=== PATIENT | male | born 1945 | race Caucasian/White ===

== ENCOUNTER 2017-10-04 07:35 | Outpatient (CLI) | payer MEDICARE ==
--- NOTE | 2017-10-04 09:08 | CT ---
CT PULMONARY LOW DOSE LUNG SCAN: History: Low dose lung screening. History of COPD, emphysema, smoker for 45 years. FINDINGS: The lungs show some mild emphysematous type changes with areas of airtrapping. No significant bulla a re seen. No bronchiectatic change noted. There is some pleural calcification along the right hemidiap hragm. No other areas of any calcified plaque formation although there is some minimal plaque changes seen within the left lobe. Correlation as to any previous asbestosis exposure. No pulmonary nodules are identified. No significant mediastinal adenopathy is seen. There is fairly dense coronary calcifications noted. IMPRESSION: Lung RADS category 1S - negative. No pulmonary nodules are identified but there are two axillary find ings. One is extensive coronary artery calcifications, the other is pleural based calcifications carla g the right hemidiaphragm raising the possibility of previous asbestosis exposure. POS: [facility]
== END 2017-10-04 07:36 | disposition home or self-care (01) ==
LOC: CT 07:35
PROVIDERS: ATTEND Family Medicine
DX: Z87.891 Personal history of nicotine dependence (principal); R91.8 Other nonspecific abnormal finding of lung field
CPT/HCPCS: G0297

== ENCOUNTER 2017-11-01 06:43 | Outpatient (CLI) | payer MEDICARE ==
[2017-10-27 11:41] VITALS: BMI 40.3
[2017-11-01 07:16] VITALS: TEMP 98
--- NOTE | 2017-11-01 09:56 | RAD ---
CERVICAL AND LUMBAR MYELOGRAM: HISTORY: Lumbar and cervical radiculopathy. COMPARISON: 09/19/2014 EXPOSURE: 1.2 minutes 2671.1 mGy per m2 FINDINGS: Initial rn surgical views of the lumbar and cervical spine were performed. There is extensive degenerative change of the cervical spine with extensive osteophyte formation. Facet hypertrophy is noted. Calc ification in the left neck soft tissues, likely representing atherosclerotic plaque in the carotid ar minerva. Two views of the lumbar spine demonstrate five lumbar type vertebral bodies. Moderate loss of disk s pace height at L4-L5 and at L5-S1. Osteophyte formation is noted. No fracture. Extensive atheroscl erosis of the aorta is identified. Technically successful lumbar puncture for intrathecal contrast administration. A total of 10 mL of Isovue 300M contrast was administered intrathecally. The patient tolerated the procedure well. No i mmediate or post procedure complications. TECHNIQUE: Consent obtained to perform a lumbar puncture for intrathecal contrast administration. The patient's back was evaluated. The L3-L4 level was deemed appropriate. The skin was prepped and draped in a s terile fashion, and 1% Lidocaine buffered with sodium bicarbonate was used for local anesthesia. Und er fluoroscopic guidance, a 22 gauge spinal needle was advanced into the CSF space. The inner stylet was removed. There was prompt flow of clear CSF, at the hub of the needle. A total of 10 mL of Iso isrrael 300M contrast was administered intrathecally. The patient tolerated the procedure well. No imme diate or post procedure complications. IMPRESSION: Successful lumbar puncture for cervical and lumbar myelogram. POS: [facility]
--- NOTE | 2017-11-01 10:22 | CT ---
POST MYLEOGRAM CERVICAL SPINE CT: History: Cervical radiculopathy. Comparison: 09-19-14 Technique: Post myelogram cervical spine CT is performed in the axial plane. Sagittal and coronal ref ormatted images are submitted for interpretation. FINDINGS: Cervical spine vertebral height is maintained. There is no fracture. There is no spondylolysis. There are extensive degenerative changes throughout the intraarticular facets. 4.2 mm of anterolisthesis o f C4 upon C5, 4.7 mm anterolisthesis of C5 upon C6, 2.8 mm anterolisthesis of C6 upon C7. Spondylolis thesis is similar to previous examination. No prevertebral soft tissue swelling. No epidural hematoma. Extensive atherosclerosis of the left and right carotid arteries. Upper mediastinum and lung apices are unremarkable. C2-3: No significant osteophyte complex. Right neural foramen is patent. Severe left foraminal narrow ing due to degenerative change of the uncal vertebral joint and facet hypertrophy. C3-4: Broad based disc osteophyte complex without high grade central canal stenosis. Degenerative tristian nge of bilateral uncal vertebral joints and bilateral facet hypertrophy (right greater than left) is noted. Moderate bilateral foraminal narrowing. C4-5: There is a broad based disc osteophyte complex. No high grade central canal stenosis. There ranulfo ears to be minimal flattening of the thecal sac secondary to central osteophyte complex. Right neural foramen is patent. Severe left foraminal narrowing predominately due to facet hypertrophy. C5-6: Broad based osteophyte ridge effaces the ventral subarachnoid space. Mild central canal stenosi s. Degenerative change and bilateral vertebral joints result in moderate bilateral foraminal narrowin g. C6-7: Broad based osteophyte results in moderate central canal stenosis. Degenerative change in bilat eral uncal vertebral joints is also severe. Bilateral foraminal narrowing. C7-T1: No high grade central canal stenosis. Mild bilateral foraminal narrowing. Asymmetric prominence of the right pyriform sinus, due to right vocal cord paralysis. Findings are un changed. IMPRESSION: Degenerative change of the cervical spine as detailed above. POS: [facility]
--- NOTE | 2017-11-01 10:30 | CT ---
POST MYELOGRAM LUMBAR SPINE CT: HISTORY: Lumbar radiculopathy. COMPARISON: 09/19/2014 TECHNIQUE: Post myelogram lumbar spine CT is performed in the axial plane. Reformatted images are submitted for interpretation. FINDINGS: The visualized solid organs are unremarkable. Symmetric attenuation of the psoas muscles. Atheroscl erosis of a nonaneurysmal aorta. No retroperitoneal mass, lymphadenopathy, or hematoma. Lumbar spine vertebral body height is maintained. No fracture. Straightening of normal lumbar lordo sis. No spondylolisthesis or spondylolysis. The conus medullaris terminates at the superior aspect of L1. T11-T12: No high grade central canal stenosis or high grade foraminal narrowing. T12-L1: No high grade central canal stenosis or high grade foraminal narrowing. L1-L2: Generalized disk bulge results in minimal stenosis of the thecal sac. The neural foramina ar e patent bilaterally. L2-L3: Vacuum disk phenomenon. Broad-based disk bulge, ligamentum flavum thickening, and facet hype rtrophy result in mild central canal stenosis. Mild right and left foraminal narrowing. L3-L4: No significant central canal stenosis. Mild right and minimal left foraminal narrowing. L4-L5: Vacuum disk phenomenon. Broad-based disk bulge, ligamentum flavum thickening, and facet hype rtrophy result in mild central canal stenosis. Mild to moderate right and moderate left foraminal na rrowing. L5-S1: Generalized disk bulge without significant central canal stenosis. Moderate right and modera te to severe left foraminal narrowing. IMPRESSION: Degenerative changes of the lumbar spine as detailed above. POS: [facility]
== END 2017-11-01 06:44 | disposition home or self-care (01) ==
LOC: RAD 06:43
PROVIDERS: ATTEND Specialist
DX: M50.120 Mid-cervical disc disorder, unspecified level (principal); M51.17 Intervertebral disc disorders with radiculopathy, lumbosacral region; M47.26 Other spondylosis with radiculopathy, lumbar region; M47.22 Other spondylosis with radiculopathy, cervical region; Z98.890 Other specified postprocedural states
CPT/HCPCS: 62305; 72126; 72132

== ENCOUNTER 2017-12-04 12:53 | Outpatient (CLI) | payer MEDICARE ==
[2017-12-04 14:41] LABS: Hemoglobin 13.8 g/dL (14.0-18.0); Mean Corpuscular Hemoglobin 33.1 pg (27.0-31.0); Mean Corpuscular Volume 94.6 fl (80.0-94.0); Mean Platelet Volume 7.1 fL (7.4-10.4); Platelet Count 207 thou/uL (130-400); RBC Distribution Width 12.8 % (11.5-14.5); Red Blood Cell (RBC) Count 4.16 mill/uL (4.70-6.10)
[2017-12-04 14:46] LABS: PTT 27.6 SEC (22.9-36.1)
[2017-12-04 14:47] LABS: Prothrombin Time 13.3 SEC (12.0-14.7)
[2017-12-04 15:09] LABS: ALT (SGPT) 28 U/L (8-55); AST (SGOT) 20 U/L (5-34); Albumin 4.2 g/dL (3.4-4.8); Alkaline Phosphatase 53 U/L (40-150); Anion Gap 12 mmol/L (10-20); BUN (Urea Nitrogen) 18 mg/dL (8.4-25.7); Bilirubin, Total 0.8 mg/dL (0.2-1.2); Calc. Creatinine Clearance 0 mL/min (70-130); Calcium 9.4 mg/dL (7.8-10.44); Carbon Dioxide 25 mmol/L (23-31); Cardiac Risk 4.4 (Less than 4.5); Chloride 107 mmol/L (98-107); Cholesterol 141 mg/dl (< 200 Desired); Estimated GFR-MDRD 65; Globulin 2.8 g/dL (2.4-3.5); Glucose 104 mg/dL (83-110); HDL Cholesterol 32 mg/dL (>60 Neg Risk); LDL Cholesterol, Calculated 68 mg/dL; Sodium 140 mmol/L (136-145); Triglycerides 207 mg/dL (Less than 150)
--- NOTE | 2018-02-05 21:07 | EKG ---
Test Reason : Blood Pressure : / mmHG Vent. Rate : 063 BPM Atrial Rate : 063 BPM P-R Int : 176 ms QRS Dur : 104 ms QT Int : 420 ms P-R-T Axes : 045 024 031 degrees QTc Int : 429 ms Normal sinus rhythm Normal ECG When compared with ECG of 28-JAN-2014 08:56, No significant change was found Confirmed by IMELDA SMITH M.D. ([id number]) on 02/05/2018 9:07:21 PM Referred By: LUIS Confirmed By:IMELDA SMITH M.D.
== END 2017-12-04 12:54 | disposition home or self-care (01) ==
LOC: LABBT 12:53
PROVIDERS: ATTEND Internal Medicine Cardiovascular Disease
DX: Z01.818 Encounter for other preprocedural examination (principal); I25.119 Atherosclerotic heart disease of native coronary artery with unspecified angina pectoris
CPT/HCPCS: 80053; 80061; 85027; 85610; 85730; 93005; 93010

== ENCOUNTER 2017-12-08 06:49 | Day surgery (SDC) | payer MEDICARE ==
[2017-12-04 13:30] VITALS: BMI 38.4
[2017-12-08] MEDS ORDERED: Nitroglycerin 100MG/250ML BOT 250 ML ONE (09:14)
[2017-12-08] MEDS ORDERED: Verapamil 5 MG/2 ML VIAL ONE (09:14)
[2017-12-08] MEDS ORDERED: Heparin 10,000 UNITS/1 ML VIAL ONE (09:14)
[2017-12-08] MEDS ORDERED: Midazolam HCl 2 mg/2 ml Vial ONE (09:19)
[2017-12-08] MEDS ORDERED: Fentanyl 100 MCG/2 ML VIAL ONE (09:19)
[2017-12-08] MEDS ORDERED: Iopamidol 370 76% 100 ML VIAL ONE (11:19)
[2017-12-08] MEDS ORDERED: Iopamidol 370 76% 50 ML VIAL FS ONE (11:19)
--- NOTE | 2017-12-08 14:56 | RAD ---
PA AND LATERAL OF THE CHEST: INDICATION: Preoperative procedure for CABG. COMPARISON: Prior exam dated 07/05/12. FINDINGS: No focal consolidation is evident. There is stable mild cardiomegaly. Multilevel spondylosis of tho racic spine with DISH changes is similar. IMPRESSION: No acute cardiopulmonary abnormality. POS: [facility]
--- NOTE | 2017-12-08 15:08 | CON ---
DATE OF CONSULTATION: 12/08/2017 REQUESTING PHYSICIAN: Dr. Eldridge. PRIMARY CARE PHYSICIAN: Dr. Jeremias Barrientos. CHIEF COMPLAINT: Chest pain and dyspnea on minimal exertion. HISTORY OF PRESENT ILLNESS: The patient is a 72-year-old man who until recently was a lifelong smoker. The patient is hard of hearing and even with his hardware for his cochlear implant is sometimes a challenging historian because of his hearing. When asked about how long his symptoms have been going on, he and his talked about getting short of breath when he exerts himself for at least 20 years. A daughter who lives out of town had interjected however , that when he recently came for a visit that she noticed that he got much more short of breath with much less activity, then she remembered him the last time she seen him and piecing it all together it sounds like he has had some baseline problems with dyspnea on exertion, but over the last few months, it has been getting worse and he is now at a point where it sounds like he can really only walk perhaps across the room before he begins having chest pain and shortness of breath. PAST MEDICAL HISTORY: Significant for hypertension. He has a legacy diagnosis of COPD. He has had multiple arthritic issues with back problems and he has had 2 procedures on his right knee including a knee replacement. He has had a carpal tunnel release and he has hypothyroidism. MEDICATIONS: Lisinopril/hydrochlorothiazide 20/25 one tablet a day, Zocor 10 mg at bedtime, meloxicam 15 mg a day, baby aspirin a day, fluticasone nasal spray daily, Lasix 20 mg a day as needed for peripheral edema, vitamin D3, multivitamins, iron sulfate. ALLERGIES: He reports allergies to SULFA, which causes swelling, and CODEINE. When questioned about the CODEINE, he said that as a teenager, he received codeine and began jumping up and down, and since then been described as having seizures with CODEINE what he described to me sounded more can do dysphoric reaction. He says that he since had hydrocodone without difficulty. SOCIAL HISTORY: The patient has about [id number] history of smoking, but quit in 2016. FAMILY HISTORY: Significant for his father dying of an [place]. Brother dying of cerebral aneurysm. REVIEW OF SYSTEMS: Positive for an occasional cough. Positive for arthritic symptoms diffusely. Positive for hearing difficulty. Positive for peripheral edema. Negative for orthopnea or PND. Negative for any transient eyes, speech , facial or extremity symptoms consistent with TIAs, although he told me that he had a "stroke" after his knee replacement a few years ago. When asked about how that was manifest, his said the right side of his face drooped. PHYSICAL EXAMINATION: GENERAL: He is a large man, in no distress. VITAL SIGNS: He is 5 feet 9. Weighs 261-1/2 pounds. Heart rate is 60, blood pressure 149/74, respirations 20, temperature is 97.5, room air sats are 96%. HEENT: He has no xanthelasma. NECK: No JVD, no carotid bruits. LUNGS: His chest is clear to auscultation. CARDIOVASCULAR: He has a regular rate and rhythm without murmur or gallop. ABDOMEN: Large, soft, and nontender. EXTREMITIES: He has an easily palpable left radial pulse. He has a pressure device on his right radial following his catheterization. He has strong posterior tibial pulses, but I was not able to palpate dorsalis pedis pulses. He has spiders at both ankles. He has a trace to 1+ edema at the left ankle, 1- 2+ at the right ankle. NEUROLOGIC: Other than being dramatically hard of hearing, his neurologic exam is grossly normal. LABORATORY DATA: Show white count of 7.0, hemoglobin 13.8, hematocrit 39.4, platelets 207,000. PT is 13.3, INR 1.0, PTT 27.6. Electrolytes are normal. Glucose 104, BUN 18, creatinine 1.10, bilirubin 0.8, alkaline phosphatase 53, AST 20, ALT 28, calcium 94, protein 7.0, albumin 4.2, triglycerides 207, cholesterol 141 with LDL 68 and HDL 32. TSH done about 3 months ago was 0.6052. His cardiac catheterization shows a right dominant system with diffuse irregularity throughout the right coronary proper and minimal disease in the PDA. None of the areas of his right coronary worsened about 30%-40% stenotic. He has branch off of his posterolateral branch that has an ostial lesion, but it is a very small caliber vessel. He has about an 80%-90% ostial lesion in his LAD with a separate lesion at the first septal bottom sprayer. There is probably about an 80%-90% lesion in a relatively small OM1 and some very mild disease in the circumflex system beyond that it is mostly a very small vessel beyond that. LVEF is around 70 or even 80%. LV pressures were 122/3 with an EDP of 16. He had a pulmonary function testing done fairly recently that was interpreted as being normal, although the actual spirometry numbers are not available to me. Likewise, Dr. Eldridge's office note describes his echo is having normal LV function. His stress test showing inferior ischemia and a carotid study showing mild plaque. ASSESSMENT AND RECOMMENDATION: Ostial LAD disease as well as significant disease in a relatively small OM. The patient reports frequent dizziness that sometime is associated with Valsalva maneuvers such as coughing, sneezing or straining at stool. It is not clear that there is any exertional component to that, but clearly has exertional chest pain and shortness of breath that I think can be readily attributable to his coronary disease. We will plan on coronary artery bypass grafting next week. MELIDA
== END 2017-12-08 18:40 | disposition home or self-care (01) ==
LOC: CCL 06:49
PROVIDERS: ATTEND Internal Medicine Cardiovascular Disease
DX: I25.119 Atherosclerotic heart disease of native coronary artery with unspecified angina pectoris (principal); J44.9 Chronic obstructive pulmonary disease, unspecified; E78.00 Pure hypercholesterolemia, unspecified; I10 Essential (primary) hypertension; M19.90 Unspecified osteoarthritis, unspecified site; E07.9 Disorder of thyroid, unspecified; Z88.2 Allergy status to sulfonamides; Z88.5 Allergy status to narcotic agent; Z79.82 Long term (current) use of aspirin; Z79.899 Other long term (current) drug therapy; Z98.890 Other specified postprocedural states; Z86.73 Personal history of transient ischemic attack (TIA), and cerebral infarction without residual deficits
CPT/HCPCS: 71046; 93458; C1769; 99152; J1644; J2250; J3010

== ENCOUNTER 2017-12-12 11:37 | Outpatient (CLI) | payer MEDICARE ==
[2017-12-12 13:19] LABS: Hemoglobin 14.3 g/dL (14.0-18.0); Mean Corpuscular Hemoglobin 32.5 pg (27.0-31.0); Mean Corpuscular Volume 95.5 fl (80.0-94.0); Mean Platelet Volume 7.3 fL (7.4-10.4); Platelet Count 237 thou/uL (130-400); RBC Distribution Width 12.8 % (11.5-14.5); Red Blood Cell (RBC) Count 4.39 mill/uL (4.70-6.10); White Blood Cell (WBC) Count 7.3 thou/uL (4.8-10.8)
[2017-12-12 13:47] LABS: Anion Gap 14 mmol/L (10-20); BUN (Urea Nitrogen) 22 mg/dL (8.4-25.7); Calc. Creatinine Clearance 0 mL/min (70-130); Calcium 9.4 mg/dL (7.8-10.44); Carbon Dioxide 24 mmol/L (23-31); Chloride 104 mmol/L (98-107); Estimated GFR-MDRD 77; Glucose 107 mg/dL (83-110); Sodium 138 mmol/L (136-145)
== END 2017-12-12 11:38 | disposition home or self-care (01) ==
LOC: LABBT 11:37
PROVIDERS: ATTEND Thoracic Surgery (Cardiothoracic Vascular Surgery)
DX: Z01.812 Encounter for preprocedural laboratory examination (principal); I25.10 Atherosclerotic heart disease of native coronary artery without angina pectoris
CPT/HCPCS: 80048; 85027; 86850; 86900; 86901

== ENCOUNTER 2017-12-12 12:00 | Inpatient (IN) | payer MEDICARE, OTHER ==
[2017-12-13] MEDS ORDERED: CEFAZOLIN/Water 2 GM/20 ML SYRINGE ONE (07:28)
[2017-12-13] MEDS ORDERED: Heparin 10,000 UNITS/1 ML VIAL 30,000 UNITS in Sodium Chloride 0.9% 1,000 ML FS SCH (09:15)
[2017-12-13] MEDS ORDERED: Fentanyl 100 MCG/2 ML VIAL ONE ×2 (10:55)
[2017-12-13] MEDS ORDERED: Midazolam HCl 5 mg/5 ml Vial ONE (10:56)
[2017-12-13] MEDS ORDERED: Mag-Al 1200 mg/1200 mg/30 ML UDCUP PO PRN (11:58)
[2017-12-13] MEDS ORDERED: Post-Op Insulin Drip Protocol IVPB ONE (11:58)
[2017-12-13] MEDS ORDERED: Promethazine HCl 25 MG/ML VIAL IM PRN (11:58)
[2017-12-13] MEDS ORDERED: hydrALAZINE 20 MG/ML VIAL SLOW IVP PRN (11:58)
[2017-12-13] MEDS ORDERED: Nitroglycerin 50 MG/250 ML BOT 250 ML IVPB PRN (11:58)
[2017-12-13] MEDS ORDERED: Hetastarch 6% 500 ML 500 ML IVPB PRN (11:58)
[2017-12-13] MEDS ORDERED: Fentanyl 100 MCG/2 ML VIAL SLOW IVP PRN (11:58)
[2017-12-13] MEDS ORDERED: Potassium Chloride 20 MEQ/100 ML PREMIX BAG IVPB PRN (11:58)
[2017-12-13] MEDS ORDERED: Guaifenesin DM 100-10/5 ML UDCUP PO PRN (11:58)
[2017-12-13] MEDS ORDERED: Bisacodyl 10 MG SUPP PR PRN (11:58)
[2017-12-13] MEDS ORDERED: Bisacodyl 5 MG TAB PO PRN (11:58)
[2017-12-13] MEDS ORDERED: DOPamine 400 MG/D5W 250 ML 250 ML IVPB PRN (11:58)
[2017-12-13] MEDS ORDERED: Dextrose 50% Abboject 50 ML SYRINGE SLOW IVP PRN (12:33)
[2017-12-13] MEDS ORDERED: Dextrose 5% in Water 1,000 ML IV PRN (12:33)
[2017-12-13] MEDS: CEFAZOLIN 1 GM, Syringe 2.5 ML in Sterile Water 7.5 ML SLOW IVP SCH ×2 (12:33→15:27)
[2017-12-13] MEDS ORDERED: Albumin 5% 0 ML ONE (13:20)
[2017-12-13 13:21] VITALS: BMI 38.5
[2017-12-13] MEDS ORDERED: Aminocaproic Acid 5 GM/20 ML VIAL ONE (15:17)
[2017-12-13] MEDS ORDERED: Heparin 30,000 units/30 ml VIAL ONE (15:17)
[2017-12-13] MEDS ORDERED: Sodium Bicarb 50 MEQ/50 ML VIAL ONE (15:17)
[2017-12-13] MEDS ORDERED: Heparin 5,000 UNITS/ML VIAL ONE (15:17)
[2017-12-13] MEDS ORDERED: Lidocaine 2% PF 100 mg/5 ml Syringe ONE (15:17)
[2017-12-13] MEDS ORDERED: Papaverine 60 MG/2 ML VIAL ONE (15:17)
[2017-12-13] MEDS ORDERED: Magnesium 5 GM/10 ML VIAL ONE (15:17)
[2017-12-13] MEDS ORDERED: Potassium Chloride 60 MEQ/30 ML VIAL ONE (15:17)
[2017-12-13] MEDS ORDERED: Protamine Sulfate 250 MG/25 ML VIAL ONE (15:17)
[2017-12-13] MEDS ORDERED: Dexamethasone 20 MG/5 ML VIAL ONE (15:18)
[2017-12-13] MEDS ORDERED: Succinylcholine Chloride 20 MG/ML 10 ml SYRINGE FS ONE (15:18)
[2017-12-13] MEDS ORDERED: Glycopyrrolate 0.2 MG/ML 5 ML SYRINGE ONE (15:18)
[2017-12-13] MEDS ORDERED: PROPOFOL 200 MG/20 ML VIAL ONE (15:18)
[2017-12-13] MEDS ORDERED: PHENYLEPHRINE-NS 100 MCG/ML 10 ML SYRINGE ONE (15:18)
[2017-12-13] MEDS ORDERED: Ondansetron PF 4 MG/2 ML Vial ONE (15:18)
[2017-12-13] MEDS ORDERED: Rocuronium Bromide 50 MG/5 ML VIAL ONE (15:24)
[2017-12-13] MEDS: Sodium Chloride 0.9% 1,000 ML IV SCH ×2 (15:27→21:27)
[2017-12-13 16:33] LABS: #Eosinphils 0.1 thou/uL (0.0-0.7); #Lymphocytes 1.3 thou/uL (1.20-3.40); #Monocytes 0.6 thou/uL (0.11-0.59); #Neutrophils 12.2 thou/uL (1.40-6.50); %Basophils 0.1 % (0.0-1.0); %Eosinophils 0.6 % (0.0-10.0); %Lymphocytes 9.2 % (21.0-51.0); %Monocytes 4.5 % (0.0-10.0); %Neutrophils 85.6 % (42.0-75.0); Hemoglobin 11.6 g/dL (14.0-18.0); Mean Corpuscular HGB CONC 34.8 g/dL (32.0-36.0); Mean Corpuscular Hemoglobin 33.1 pg (27.0-31.0); Mean Platelet Volume 6.8 fL (7.4-10.4); Platelet Count 184 thou/uL (130-400); RBC Distribution Width 12.4 % (11.5-14.5); Red Blood Cell (RBC) Count 3.51 mill/uL (4.70-6.10); White Blood Cell (WBC) Count 14.3 thou/uL (4.8-10.8)
[2017-12-13 16:40] LABS: INR-International Normal Ratio 1.4; PTT 29.8 SEC (22.9-36.1); Prothrombin Time 17.3 SEC (12.0-14.7)
[2017-12-13] MEDS ORDERED: Prevnar 13-Val Conj/PF 0.5 ML SYRINGE IM ONE (16:45)
--- NOTE | 2017-12-13 16:53 | RAD ---
CHEST ONE VIEW 12/13/17 HISTORY: Post open heart surgery. COMPARISON: 12/08/17. FINDINGS: Patient is intubated. Endotracheal tube tip at the level of the clavicles in good position. Central v enous catheter tip is in the right atrium. Heart size is enlarged. Thoracostomy drain is in place. No large pneumothorax. IMPRESSION: Expected postoperative findings without complication. POS: [facility]
[2017-12-13 16:54] LABS: Actual Bicarbonate (HCO3a) 21.3 mEq/L (22-26); Base Excess (BEa) -4.1 mEq/L (0 (+/-) 2.5); CO2 Tension 40.3 mmHg (35.0-45.0); Calcium, Ionized 1.1 mmol/L (1.12-1.30); Carboxyhemoglobin (COHb) 1.7 gm% (0.0-3.0); Hematocrit-ABG 32.8 % (42.0-52.0); Hemoglobin (Hb) 11.9 g/dL (14.0-18.0); O2 Tension (PaO2) 91.2 mmHg (80.0-100.0); Puncture Site ALINE; pH, Arterial 7.34 (7.35-7.45)
[2017-12-13 16:55] LABS: ALV-art Gradient 214.925 (0-20)
[2017-12-13] MEDS ORDERED: FLU VACC TS2017-18 (>65YR) 0.5 ML SYRINGE IM ONE (17:00)
[2017-12-13 17:01] LABS: Anion Gap 11 mmol/L (10-20); BUN (Urea Nitrogen) 14 mg/dL (8.4-25.7); Calc. Creatinine Clearance 132 mL/min (70-130); Calcium 7.5 mg/dL (7.8-10.44); Carbon Dioxide 22 mmol/L (23-31); Chloride 110 mmol/L (98-107); Estimated GFR-MDRD Greater than 90; Glucose 149 mg/dL (83-110); Potassium 4.3 mmol/L (3.5-5.1); Sodium 139 mmol/L (136-145)
[2017-12-13] MEDS: Insulin Regular 300 UNITS/3 ML VIAL SC PRN (17:16)
--- NOTE | 2017-12-13 17:52 | OP ---
DATE OF PROCEDURE: 12/13/2017 PROCEDURE PERFORMED: Coronary artery bypass grafting x2 with left internal mammary artery to the lef t anterior descending artery and reverse greater saphenous vein graft from the aorta to the OM1. PREOPERATIVE DIAGNOSIS: Coronary artery disease. POSTOPERATIVE DIAGNOSIS: Coronary artery disease. SURGEON: Rufino Armstrong M.D. IT ARCHITECT: Sixto. ANESTHESIA: General endotracheal anesthesia. INDICATIONS: The patient is a 72-year-old man with progressive dyspnea on exertion that is now at cl ass 3 level. Cardiac evaluation demonstrated high grade ostial LAD lesion with modest disease in the moderate size obtuse marginal. There is diffuse luminal irregularity without hemodynamic compromise in the right coronary system by echocardiography, it is reported to have normal LV systolic function . He is now taken to the operating room for coronary revascularization. FINDINGS: The pump time 62 minutes, crossclamp time 29 minutes. Good quality MALCOM and saphenous vein . The LAD was grafted distally. There is scattered plaque more proximally, it was about 1.5 mm vess el were grafted. The OM1 was a fairly good quality vessel with palpable plaque, far proximally it wa s about 1.5 mm vessel. Pericardium was closed. NARRATIVE REPORT: After informed consent was obtained, the patient was taken to the operating room a nd placed in supine position on the operating table. After the induction of general anesthesia, the patient's torso, groins and lower extremities were prepped and draped in sterile fashion. The assist ant harvested a length of saphenous vein from the patient's proximal left thigh using a skin bridge t echnique. [place] sites were closed in layers of Vicryl and skin staple after the vein was prepared for grafting. Median sternotomy was performed. The left MALCOM was mobilized as a pedicle from xiphoid to the level of the subclavian vein through an extrapleural exposure. A small violation of the pleu ra near the apex was oversewn with fine Prolene. The patient was heparinized. The mammary was ligat ed and divided distally. There is good flow through the mammary which was then instilled intralumina lly with papaverine solution. The mammary bed was inspected for hemostasis. The MALCOM retractor was p laced with López retractor. The pericardium was opened and marsupialized. The aorta was palpated . There was hard plaque palpable at the base of the arch just beyond the pericardial reflection. Th e intrapericardial aorta was soft. Double concentric pursestring of 2-0 Ethibonds placed in the asce nding aorta within the pericardial reflection. A single pursestring was placed in the right atrial a ppendage. Aortic and venous cannulae were inserted and secured with pursestrings. Cardiopulmonary b ypass was instituted and the patient's temperature allowed to drift. The heart was examined. The ve ssel to be bypassed was identified. The mediastinal pleura on the left side were mobilized. Plane b etween the aorta and the pulmonary artery was developed. There was no further plaque appreciable in it. An aortic cross clamp was applied and cardioplegia was administered through aortic root needle w hile cardioplegia was infusing. A longitudinal split was made in the pericardium anterior to the lef t phrenic nerve. The mammary could be passed. When risks have been achieved, attention was turned t o the circumflex system. The OM1 was identified and then opened with a [place] blade and Gwyn sci ssors. Reverse greater saphenous vein was anastomosed their end-to-side with running Prolene suture. Anastomosis was tested by flushing pump blood down the graft. The LAD was then opened distally. T he MALCOM was anastomosed to it with running 7-0 Prolene, and the mammary pedicle tacked to the epicardi um. The aortic crossclamp was placed with partial occluding clamp and an aortotomy was made in the a scending aorta with a scalpel and punch incorporating the root needle site. The obtuse marginal jessie t trimmed to length and spatulated and anastomosed to that aortotomy end-to-side with running Prolene and the proximal anastomosis marked with small Hemoclips. Partial occlusion clamp was removed. The vein graft was deaired and bulldog removed from it. The anastomosis was inspected for hemostasis. The posterior pericardial drain was brought out through a separate incision and secured with suture. Bulging of the left pleura was seen suggesting a residual pneumothorax. It was elected to evacuate that using an ET sucker placed through pursestring Prolene suture in the anterior pleura. Upon re-in flating the lungs; however bubbling could be seen through the pulled bloody fluid towards the apex. Even though test splitting of that area appeared to be watertight, it was opted to place a 19-Yi soft drain into the pleural space to evacuate any fluid that accumulated during the case and any resi dual air. Right atrial and right ventricular temporary epicardial pacing wires were placed. The pat ient was then easily from cardiopulmonary bypass. The aortic and venous cannulas were lesley merle, and their pursestring secured. Protamine was administered. When hemostasis was adequate, an an terior mediastinal drain was placed. The pericardium was closed over a running Vicryl. The sternum was reapproximated with #7 stainless steel wires. Fascia was closed over the wires with heavy Vicryl . Subcutaneous tissue was irrigated and reapproximated and the skin was closed with Vicryl subcuticu lar stitch. The wounds were dressed. The patient was taken to the Intensive Care Unit in stable con dition.
[2017-12-13 18:11] LABS: Hemoglobin 12.1 g/dL (14.0-18.0)
[2017-12-13 18:34] LABS: Potassium 4.1 mmol/L (3.5-5.1)
[2017-12-13 19:36] LABS: Actual Bicarbonate (HCO3a) 19.3 mEq/L (22-26); Base Excess (BEa) -5.3 mEq/L (0 (+/-) 2.5); CO2 Tension 34.4 mmHg (35.0-45.0); Hemoglobin (Hb) 11.1 g/dL (14.0-18.0); O2 Tension (PaO2) 85.8 mmHg (80.0-100.0); pH, Arterial 7.37 (7.35-7.45)
[2017-12-13 19:37] LABS: Carboxyhemoglobin (COHb) 1.6 gm% (0.0-3.0); Potassium - ABG Lab 3.9 mmol/L (3.70-5.30)
[2017-12-13 19:38] LABS: Analyzer IN Cardio ER; Puncture Site A LINE
[2017-12-13] MEDS: Famotidine/PF 20 mg/2ml Vial SLOW IVP SCH (20:58)
[2017-12-13] MEDS: Atorvastatin Calcium 20 MG TAB PO SCH (20:58)
[2017-12-13] MEDS: Fentanyl 100 MCG/2 ML VIAL SLOW IVP PRN (22:10)
[2017-12-14] MEDS ORDERED: B & O PR PRN (00:09)
[2017-12-14] MEDS: Fentanyl 100 MCG/2 ML VIAL SLOW IVP PRN ×2 (00:10→04:26)
[2017-12-14] MEDS: Ondansetron PF 4 MG/2 ML Vial IVP PRN ×4 (00:53→20:29)
[2017-12-14] MEDS: HYDROcodone/Acetaminophen 5/325 mg Tablet PO PRN ×4 (01:49→20:27)
[2017-12-14 04:40] LABS: #Lymphocytes 0.5 thou/uL (1.20-3.40); #Monocytes 0.6 thou/uL (0.11-0.59); %Eosinophils 0.2 % (0.0-10.0); %Lymphocytes 4.8 % (21.0-51.0); %Neutrophils 88.9 % (42.0-75.0); Hemoglobin 10.2 g/dL (14.0-18.0); Mean Corpuscular HGB CONC 34.9 g/dL (32.0-36.0); Mean Corpuscular Hemoglobin 33.5 pg (27.0-31.0); Mean Corpuscular Volume 95.9 fl (80.0-94.0); Platelet Count 175 thou/uL (130-400); RBC Distribution Width 12.6 % (11.5-14.5); Red Blood Cell (RBC) Count 3.06 mill/uL (4.70-6.10); White Blood Cell (WBC) Count 10.2 thou/uL (4.8-10.8)
[2017-12-14 04:49] LABS: Anion Gap 9 mmol/L (10-20); BUN (Urea Nitrogen) 21 mg/dL (8.4-25.7); Calc. Creatinine Clearance 110 mL/min (70-130); Calcium 7.3 mg/dL (7.8-10.44); Carbon Dioxide 22 mmol/L (23-31); Chloride 112 mmol/L (98-107); Estimated GFR-MDRD 75; Glucose 136 mg/dL (83-110); Potassium 4.1 mmol/L (3.5-5.1); Sodium 139 mmol/L (136-145)
[2017-12-14] MEDS ORDERED: Nitroglycerin 0.4 MG TAB 1 EACH SL PRN (06:56)
[2017-12-14] MEDS ORDERED: diphenhydrAMINE 25 MG CAP PO PRN (06:56)
[2017-12-14] MEDS ORDERED: Guaifenesin DM 100-10/5 ML UDCUP PO PRN (06:56)
[2017-12-14] MEDS ORDERED: Mineral Oil ENEMA PR PRN (06:56)
[2017-12-14] MEDS ORDERED: Bisacodyl 10 MG SUPP PR PRN (06:56)
[2017-12-14] MEDS ORDERED: Artificial Tears 18 DROP/0.9 ML EA EYE PRN (06:56)
[2017-12-14] MEDS ORDERED: Mag-Al 1200 mg/1200 mg/30 ML UDCUP PO PRN (06:56)
[2017-12-14] MEDS ORDERED: Bisacodyl 5 MG TAB PO PRN (06:56)
[2017-12-14] MEDS ORDERED: Zolpidem Tartrate 5 MG TAB PO PRN (06:56)
[2017-12-14] MEDS ORDERED: HYDROcodone/Acetaminophen 5/325 mg Tablet PO PRN (06:57)
[2017-12-14] MEDS ORDERED: Dextrose 5% in Water 1,000 ML IV PRN (07:24)
[2017-12-14] MEDS ORDERED: Insulin Regular 300 UNITS/3 ML VIAL SC PRN (07:24)
[2017-12-14] MEDS ORDERED: Dextrose 50% Abboject 50 ML SYRINGE SLOW IVP PRN (07:24)
[2017-12-14] MEDS: Metoprolol Tartrate 25 MG TAB PO SCH ×2 (08:26→20:27)
[2017-12-14] MEDS: Famotidine/PF 20 mg/2ml Vial SLOW IVP SCH ×2 (08:26→20:27)
[2017-12-14] MEDS: Aspirin 325 mg Enteric Coated Tablet PO SCH (08:30)
--- NOTE | 2017-12-14 08:57 | RAD ---
PORTABLE CHEST: HISTORY: Respiratory distress. COMPARISON: Prior day's study. FINDINGS: Heart size is enlarged with postop sternotomy change. Right subclavian line is unchanged in position . Left-sided chest tube remains stable. Parenchymal lung changes are also stable. IMPRESSION: Stable chest. POS: [facility]
[2017-12-14] MEDS ORDERED: Aspirin 325 MG TAB PO SCH (09:00)
--- NOTE | 2017-12-14 10:56 | CON ---
DATE OF CONSULTATION: 12/14/2017 SERVICE: Pulmonary Medicine. HISTORY OF PRESENT ILLNESS: The patient is a 72-year-old white male with past medical history significant for COPD, hypertension, dyslipidemia, and coronary artery disease. He was found to have 3-vessel disease and ultimately went for cardiac bypass. He is postop day #1 from that elective procedure. He currently has some chest discomfort. He has a hard time taking a deep breath or coughing deeply because of some discomfort. He notes some nausea without vomiting. He has not had any diarrhea. He is currently breathing comfortably. He has a cough, but does not bring up anything. Otherwise, he was in his usual state of health going into this procedure. PAST MEDICAL HISTORY: 1. Hypertension. 2. Dyslipidemia. 3. Coronary artery disease. 4. Chronic obstructive pulmonary disease. 5. Hypothyroidism. 6. History of cerebrovascular accident. 7. Morbid obesity. 8. History of tobacco abuse. 9. Erectile dysfunction. 10. Hearing loss. 11. Osteoarthritis. PAST SURGICAL HISTORY: 1. Arthroscopy of the right shoulder in 1987. 2. Appendectomy. 3. Knee surgery on the right. 4. Cochlear implant. 5. Cataract surgery, left. FAMILY HISTORY: Noncontributory. SOCIAL HISTORY: He is a former smoker and quit in 2016. Prior to that, he had a greater than [id number] history of smoking. He uses 4-5 drinks on a weekly basis. He denies any street drugs. He has no exposure to chemicals, dust asbestosis or tuberculosis. ALLERGIES: 1. CODEINE causes anaphylaxis. 2. SULFA. MEDICATIONS: List of his inpatient medications was reviewed. Small updates were made. REVIEW OF SYSTEMS: General, head, eyes, ears, nose, throat, cardiovascular, respiratory, GI, , musculoskeletal, neurologic and skin is negative except as mentioned in the HPI. PHYSICAL EXAMINATION: VITAL SIGNS: Afebrile, pulse 76, blood pressure 103/61, respirations 15, saturation 96% on 3 liters nasal cannula. GENERAL: The patient is awake, alert, in no apparent distress. LUNGS: Decent air entry. There is no prolonged expiratory phase. Crackles are present dependently. HEART: Normal rate and regular. ABDOMEN: Distended, but soft. Nontender. No rebound or guarding is present. Bowel sounds are active. GENITOURINARY: No Gaona catheter. NEUROLOGIC: Grossly nonfocal. MUSCULOSKELETAL: No cyanosis or clubbing. There is 1+ pitting in the bilateral lower extremities. LABORATORY DATA: WBC 10.2, hemoglobin 10.2, and platelets 175,000. INR 1.4. PH 7.37, pCO2 34, and pO2 85. Creatinine 0.98. Basic metabolic profile is otherwise unremarkable. Calcium 7.3. IMAGING: Chest x-ray demonstrates interval extubation. There is thoracostomy drain on the left. Sternotomy wires are in good position. The patient is severely rotated, but I do not see any significant interval change. ASSESSMENT: 1. Acute hypoxic respiratory failure. 2. Coronary artery disease, status post coronary artery bypass graft x2 vessels. 3. Obstructive sleep apnea, suspected. 4. No evidence of chronic obstructive pulmonary disease based on recent pulmonary function studies (mild restriction without any hint of obstructive airflow limitation). PLAN: The patient is doing fine. He is a little bit volume overloaded. I think he can tolerate a dose of Lasix. He is stable for transition out of the ICU to the telemetry unit, but I will continue to follow for 1-2 days. I do think he has sleep apnea and could benefit from an outpatient polysomnogram. If he is so inclined, I will have him follow up with me in clinic. 70 minutes have been devoted to this patient in various activities. I personally reviewed all imaging studies and laboratory data noted within this document. For at least half of this time, I was interacting with the patient at the bedside or coordinating care with the care team. For the remainder of the time I was immediately available to the patient in the hospital unit. MELIDA
[2017-12-14] MEDS ORDERED: Furosemide 40 MG TAB PO SCH (11:15)
[2017-12-14] MEDS: Insulin Regular 300 UNITS/3 ML VIAL SC PRN ×2 (11:46→16:23)
[2017-12-14] MEDS: Atorvastatin Calcium 20 MG TAB PO SCH (20:27)
--- NOTE | 2017-12-14 22:02 | EKG ---
Test Reason : POST CABG Blood Pressure : / mmHG Vent. Rate : 086 BPM Atrial Rate : 086 BPM P-R Int : 166 ms QRS Dur : 098 ms QT Int : 396 ms P-R-T Axes : 042 022 044 degrees QTc Int : 473 ms Normal sinus rhythm Low voltage QRS Nonspecific ST abnormality Abnormal ECG When compared with ECG of 04-DEC-2017 14:26, (Unconfirmed) No significant change was found Confirmed by ALTA GIRON ([id number]) on 12/14/2017 10:01:45 PM Referred By: FAVIOLA Confirmed By:ALTA GIRON
[2017-12-15 05:49] LABS: #Lymphocytes 1.4 thou/uL (1.20-3.40); #Monocytes 0.9 thou/uL (0.11-0.59); #Neutrophils 9.8 thou/uL (1.40-6.50); %Basophils 0.1 % (0.0-1.0); %Eosinophils 0.4 % (0.0-10.0); %Lymphocytes 11.2 % (21.0-51.0); %Neutrophils 81.2 % (42.0-75.0); Hemoglobin 9.6 g/dL (14.0-18.0); Mean Corpuscular HGB CONC 34.3 g/dL (32.0-36.0); Mean Corpuscular Hemoglobin 33.4 pg (27.0-31.0); Mean Corpuscular Volume 97.4 fl (80.0-94.0); Mean Platelet Volume 6.6 fL (7.4-10.4); Platelet Count 154 thou/uL (130-400); RBC Distribution Width 12.9 % (11.5-14.5); Red Blood Cell (RBC) Count 2.88 mill/uL (4.70-6.10); White Blood Cell (WBC) Count 12.1 thou/uL (4.8-10.8)
[2017-12-15 06:01] LABS: Anion Gap 10 mmol/L (10-20); BUN (Urea Nitrogen) 34 mg/dL (8.4-25.7); Calc. Creatinine Clearance 72 mL/min (70-130); Calcium 7.8 mg/dL (7.8-10.44); Carbon Dioxide 24 mmol/L (23-31); Chloride 107 mmol/L (98-107); Estimated GFR-MDRD 46; Glucose 121 mg/dL (83-110); Potassium 4.4 mmol/L (3.5-5.1); Sodium 137 mmol/L (136-145)
[2017-12-15] MEDS ORDERED: Acetaminophen 1,000 MG in Premix Bag 1 BAG IVPB SCH (06:45)
[2017-12-15 07:13] LABS: Base Excess (BEa) -1.4 mEq/L (0 (+/-) 2.5); CO2 Tension 36.8 mmHg (35.0-45.0); Hematocrit-ABG 28.1 % (42.0-52.0); Hemoglobin (Hb) 9.3 g/dL (14.0-18.0); O2 Tension (PaO2) 50.8 mmHg (80.0-100.0); pH, Arterial 7.41 (7.35-7.45)
[2017-12-15 07:14] LABS: Calcium, Ionized 1.1 mmol/L (1.12-1.30); Carboxyhemoglobin (COHb) 2.2 gm% (0.0-3.0); Puncture Site RR
--- NOTE | 2017-12-15 09:09 | RAD ---
CHEST 1 VIEW: HISTORY: Heart surgery. COMPARISON: 12/14/17. FINDINGS: Cardiac silhouette is magnified and enlarged. Pulmonary vasculature remains engorged. Mediastinum i s midline. Postoperative changes are again demonstrated. Bibasilar atelectasis is stable. Lines an d tubes are unchanged in position. IMPRESSION: Stable postoperative appearance of the chest. POS: [facility]
[2017-12-15] MEDS: Famotidine/PF 20 mg/2ml Vial SLOW IVP SCH (10:08)
[2017-12-15] MEDS: Aspirin 325 mg Enteric Coated Tablet PO SCH (10:08)
[2017-12-15] MEDS: Furosemide 40 MG TAB PO SCH (10:08)
[2017-12-15] MEDS: Metoprolol Tartrate 25 MG TAB PO SCH ×2 (10:09→20:07)
[2017-12-15] MEDS: HYDROcodone/Acetaminophen 5/325 mg Tablet PO PRN (12:33)
--- NOTE | 2017-12-15 14:14 | PRG ---
DATE OF SERVICE: 12/15/2017 SERVICE: Pulmonary Medicine. INTERVAL HISTORY: The patient is doing fine from a respiratory standpoint. This morning, he was a l ittle bit hypoxemic. An ABG was performed. He demonstrated excellent pH and pCO2. He was a little bit confused. He was put on increased dose of Ventimask. We worked hard on mobilizing the patient a s he really did not want to get out of bed. After we did this, he opened up his lungs just beautiful ly. He got weaned back down to 1-2 liters nasal cannula and has no difficulties with his breathing a t this time. Otherwise, there was no significant change to his condition. PHYSICAL EXAMINATION: VITAL SIGNS: Afebrile, pulse 89, blood pressure 121/58, respirations 20, saturation 97% on 3 liters nasal cannula. GENERAL: Patient is awake, alert, in no apparent distress. LUNGS: Decent air entry. There is no prolonged expiratory phase. Crackles are present. No wheezin g or rhonchi. HEART: Normal rate, regular. ABDOMEN: Soft, nontender, nondistended. Bowel sounds are positive. MUSCULOSKELETAL: No cyanosis or clubbing. No pitting in the bilateral lower extremities. NEUROLOGIC: Grossly nonfocal. LABORATORY DATA: WBC 12.1, hemoglobin 9.6, and platelets 154,000. Neutrophil count is 81%. PH 7.41 , pCO2 36, and pO2 51. Creatinine 1.49 and trending upward gently. BUN 34. Basic metabolic profile is otherwise unremarkable. IMAGING: Chest x-ray demonstrates thoracostomy drain x1 on the left. There is a right-sided subclav jose central venous catheter. Sternotomy wires are in good position. Cardiomegaly is evident. The p atient is a little rotated on this film. Otherwise, the postoperative changes are stable. ASSESSMENT: 1. Acute hypoxic respiratory failure. 2. Coronary artery disease, status post coronary artery bypass graft x2 vessels. 3. Obstructive sleep apnea, suspected. 4. No evidence of chronic obstructive pulmonary disease on recent pulmonary function studies (mild r estriction without any hint of obstructive airflow limitation). PLAN: The patient can be diuresed until he returns to euvolemia. He has a little bit of kidney inju ry that should clear with time. We will continue our efforts on mobilizing the patient as much as he tolerates it. In the outpatient setting, I would like him to follow up with me in order to pursue a polysomnogram. The episode of hypoxemia this morning was likely secondary to little atelectasis as it resolved shortly after getting him out of bed into a chair. Dr. Ferrer will follow this weekend, bu t I will resume care on Monday.
[2017-12-15] MEDS: Atorvastatin Calcium 20 MG TAB PO SCH (20:06)
[2017-12-15] MEDS: Famotidine 20 MG TAB PO SCH (20:07)
[2017-12-16 05:59] LABS: #Eosinphils 0.1 thou/uL (0.0-0.7); #Lymphocytes 1.2 thou/uL (1.20-3.40); #Monocytes 0.7 thou/uL (0.11-0.59); #Neutrophils 7.5 thou/uL (1.40-6.50); %Basophils 0.1 % (0.0-1.0); %Eosinophils 1.4 % (0.0-10.0); %Lymphocytes 12.7 % (21.0-51.0); %Monocytes 7.2 % (0.0-10.0); %Neutrophils 78.5 % (42.0-75.0); Mean Corpuscular HGB CONC 33.8 g/dL (32.0-36.0); Mean Corpuscular Volume 97.6 fl (80.0-94.0); Platelet Count 165 thou/uL (130-400); RBC Distribution Width 12.7 % (11.5-14.5); Red Blood Cell (RBC) Count 2.73 mill/uL (4.70-6.10); White Blood Cell (WBC) Count 9.5 thou/uL (4.8-10.8)
[2017-12-16 06:24] LABS: Anion Gap 10 mmol/L (10-20); BUN (Urea Nitrogen) 28 mg/dL (8.4-25.7); Calc. Creatinine Clearance 118 mL/min (70-130); Calcium 8.1 mg/dL (7.8-10.44); Carbon Dioxide 27 mmol/L (23-31); Chloride 105 mmol/L (98-107); Estimated GFR-MDRD 79; Glucose 116 mg/dL (83-110); Potassium 3.8 mmol/L (3.5-5.1); Sodium 138 mmol/L (136-145)
[2017-12-16] MEDS: Insulin Regular 300 UNITS/3 ML VIAL SC PRN (07:18)
[2017-12-16] MEDS: Acetaminophen 325 MG TAB PO PRN (07:18)
[2017-12-16] MEDS: Famotidine 20 MG TAB PO SCH ×2 (08:39→20:34)
[2017-12-16] MEDS: Metoprolol Tartrate 25 MG TAB PO SCH ×2 (08:39→20:34)
[2017-12-16] MEDS: Furosemide 40 MG TAB PO SCH (08:39)
[2017-12-16] MEDS: Aspirin 325 mg Enteric Coated Tablet PO SCH (08:39)
--- NOTE | 2017-12-16 10:31 | RAD ---
PORTABLE AP CHEST: Date: 12/16/17 HISTORY: Post open heart surgery. COMPARISON: 12/15/17. FINDINGS: Right subclavian central venous catheter and left-sided thoracostomy tube remain in place and unchang ed in position. Cardiac silhouette is enlarged. Pulmonary vasculature does appear to be mildly increa sed, predominantly centrally, but this is a stable finding. There is mild bibasilar atelectasis prese nt. No other interval change. IMPRESSION: Stable chest. POS: REINALDO
[2017-12-16] MEDS: Ondansetron PF 4 MG/2 ML Vial IVP PRN (11:50)
[2017-12-16] MEDS: HYDROcodone/Acetaminophen 5/325 mg Tablet PO PRN ×2 (11:50→20:34)
--- NOTE | 2017-12-16 12:37 | PRG ---
DATE OF SERVICE: 12/16/2017 OBJECTIVE: VITAL SIGNS: Blood pressure 120/82, sats are 90% on 4 liters, temperature 98, respiratory 16. GENERAL: He has cough, but no shortness of breath. CHEST: Decreased breath sounds and minimal rhonchi. CARDIAC: Normal S1-S2. No gallops. LABORATORY: His white count 9000, H and H 9 and 26, platelet 65. Electrolytes are normal. X-ray sh ows slight cephalization. IMPRESSION: 1. Respiratory failure. 2. Sleep apnea. 3. Status post coronary artery bypass graft. PLAN: Continue aggressive neb treatments, PT and supportive care. I will follow.
[2017-12-16] MEDS: Atorvastatin Calcium 20 MG TAB PO SCH (20:34)
[2017-12-17] MEDS: HYDROcodone/Acetaminophen 5/325 mg Tablet PO PRN ×2 (02:25→11:55)
[2017-12-17] MEDS: Aspirin 325 mg Enteric Coated Tablet PO SCH (08:32)
[2017-12-17] MEDS: Metoprolol Tartrate 25 MG TAB PO SCH ×2 (08:32→21:18)
[2017-12-17] MEDS: Furosemide 40 MG TAB PO SCH (08:32)
[2017-12-17] MEDS: Famotidine 20 MG TAB PO SCH ×2 (08:33→21:18)
[2017-12-17] MEDS: Ondansetron PF 4 MG/2 ML Vial IVP PRN (11:37)
--- NOTE | 2017-12-17 15:03 | PRG ---
DATE OF SERVICE: 12/17/2017 SUBJECTIVE: Haile Bowen this morning got up to walk, became lightheaded, dizzy. OBJECTIVE: VITAL SIGNS: Blood pressure got elevated, he says diastolic was over 100, sats are 91 on 1 liter, re spiratory rate 20, temperature 98. CHEST: Bilateral crackles. CARDIAC: Normal S1, S2. ABDOMEN: Soft, no masses. Chest x-ray yesterday shows congestive heart failure findings. IMPRESSION: Status post coronary artery bypass graft, severe deconditioning, respiratory failure, pr obably sleep apnea. PLAN: Control blood pressure and pain relief. Neb treatments, supportive care. We will follow.
[2017-12-17] MEDS: Atorvastatin Calcium 20 MG TAB PO SCH (21:18)
[2017-12-17] MEDS: Acetaminophen 325 MG TAB PO PRN (21:32)
[2017-12-18] MEDS: Acetaminophen 325 MG TAB PO PRN (05:20)
--- NOTE | 2017-12-18 07:34 | DIS ---
DATE OF ADMISSION: 12/13/2017 DATE OF DISCHARGE: 12/18/2017 PRIMARY DIAGNOSIS: Coronary artery disease. SECONDARY DIAGNOSES: Hypertension, arthritis and probable obstructive sleep apnea. PROCEDURES PERFORMED: Coronary artery bypass grafting x2, left internal mammary artery to the LAD an d reverse saphenous vein graft from aorta to first obtuse marginal. HISTORY OF PRESENT ILLNESS AND HOSPITAL COURSE: The patient is a 72-year-old man with a dramatically worsening dyspnea on exertion, found on cardiac evaluation to have severe 2-vessel coronary artery d isease including an ostial LAD lesion. He underwent 2-vessel coronary artery bypass procedure on 05/2018, was extubated the night of surgery and the following day was transferred out of the Intensiv e Care Unit. The patient required positive pressure support for presumed sleep apnea on the morning of postoperative day #2, he was very confused and he was moderately hypoxic. Narcotics were withheld at that time and he was given IV Tylenol for pain control. He was mobilized and his FIO2 was increa sed and his confusion cleared. His chest tubes were removed on postoperative day #3 and today on pos toperative day #5, he is doing well and ready to go home. DISCHARGE MEDICATIONS: He will be discharged with a prescription for Vicodin as needed for pain and Lopressor 25 mg b.i.d. and that is been added to his medical regimen. The remainder of his regimen w ill be as he was taking at home. Lisinopril/hydrochlorothiazide 20/25 one a day, Zocor 10 mg at bedt keyon, meloxicam 15 mg a day, baby aspirin a day, Lasix 20 mg a day as needed for edema and the Flonase daily. Plan on seeing him in the office at roughly 2 weeks postop. Follow up with Dr. Eldridge will be per him.
[2017-12-18] MEDS: Aspirin 325 mg Enteric Coated Tablet PO SCH (08:45)
[2017-12-18] MEDS: Metoprolol Tartrate 25 MG TAB PO SCH (08:45)
[2017-12-18] MEDS: Furosemide 40 MG TAB PO SCH (08:45)
[2017-12-18] MEDS: Famotidine 20 MG TAB PO SCH (08:45)
[2017-12-18 11:28] VITALS: TEMP 97.6
[2017-12-18 16:25] VITALS: BP 128/65
--- NOTE | 2017-12-18 17:07 | PRG ---
DATE OF SERVICE: 12/18/2017 SERVICE: Pulmonary Medicine. INTERVAL HISTORY: The patient is doing fine from a respiratory standpoint. Whenever they wean him o ff of oxygen, he has a little bit of desaturation. This gets worse with exertion. By walking with o xygen, he can walk further distance. He currently denies any fevers, chills, nausea or vomiting. He does have known COPD, but cannot afford any other medications. He is supposed to be taking Symbicor t, but does not have access to any of that. As such, we can provide him with a month's samples. PHYSICAL EXAMINATION: VITAL SIGNS: Afebrile, pulse 92, blood pressure 128/65, respirations 16, saturation 98% on 2 liters nasal cannula. GENERAL: Patient is awake, alert, no apparent distress. LUNGS: Reduced air entry. There is a prolonged expiratory phase. Dependent crackles are present bi basilarly. No wheezing or rhonchi are appreciated. HEART: Normal rate, regular. ABDOMEN: Soft, nontender, nondistended. Bowel sounds are positive. MUSCULOSKELETAL: No cyanosis or clubbing. No pitting in the bilateral lower extremities. NEUROLOGIC: Grossly nonfocal. LABORATORY DATA: WBC 9.5, hemoglobin 9.0, platelets 165,000. Basic metabolic profile from several d ays ago was unremarkable. ASSESSMENT: 1. Acute hypoxic respiratory failure. 2. Obstructive sleep apnea, suspected. 3. No evidence of chronic obstructive lung disease on recent pulmonary function studies. 4. Coronary artery disease, status post coronary artery bypass graft x2 vessels. PLAN: We will continue diuresing the patient. He can be discharged from the hospital on oxygen. I can break to review whether or not this is necessary in the outpatient setting. At that time, we can investigate whether or not a sleep apnea evaluation is indicated. Pulmonary Critical Care will cont inue to follow while he remains in house.
[2017-12-19 15:20] LABS: Actual Bicarbonate (HCO3a) 22.1 mEq/L (22-26); Analyzer IN Cardio OR; Base Excess (BEa) -3.3 mEq/L (0 (+/-) 2.5); CO2 Tension 41.2 mmHg (35.0-45.0); Calcium, Ionized 1.1 mmol/L (1.12-1.30); Carboxyhemoglobin (COHb) 1.7 gm% (0.0-3.0); Hematocrit-ABG 33.9 % (42.0-52.0); Hemoglobin (Hb) 12.2 g/dL (14.0-18.0); Potassium - ABG Lab 3.4 mmol/L (3.70-5.30); Puncture Site ALINE; pH, Arterial 7.35 (7.35-7.45)
[2017-12-19 15:21] LABS: Actual Bicarbonate (HCO3a) 20.2 mEq/L (22-26); Analyzer IN Cardio OR; Base Excess (BEa) -5.5 mEq/L (0 (+/-) 2.5); Carboxyhemoglobin (COHb) 1.7 gm% (0.0-3.0); Hemoglobin (Hb) 10.9 g/dL (14.0-18.0); Potassium - ABG Lab 3.3 mmol/L (3.70-5.30); Puncture Site ALINE; pH, Arterial 7.32 (7.35-7.45)
[2017-12-19 15:22] LABS: Actual Bicarbonate (HCO3a) 21.9 mEq/L (22-26); Analyzer IN Cardio OR; Base Excess (BEa) -4.5 mEq/L (0 (+/-) 2.5); CO2 Tension 46.5 mmHg (35.0-45.0); Calcium, Ionized 1.1 mmol/L (1.12-1.30); Carboxyhemoglobin (COHb) 1.8 gm% (0.0-3.0); Hematocrit-ABG 24.2 % (42.0-52.0); Hemoglobin (Hb) 8.9 g/dL (14.0-18.0); O2 Tension (PaO2) 113.7 mmHg (80.0-100.0); Potassium - ABG Lab 4.1 mmol/L (3.70-5.30); Puncture Site ALINE; pH, Arterial 7.29 (7.35-7.45)
[2017-12-19 15:23] LABS: Actual Bicarbonate (HCO3v) 24 mEq/L (22-26); Analyzer IN Cardio OR; Base Excess -2.4 mEq/L (0 (+/- 2.5)); Hematocrit-VBG 25.9 % (37-51); Hemoglobin (Hb) 9.1 g/dL (12.6-17.4); Potassium - ABG Lab 4.3 mmol/L (3.70-5.30); Sodium 138.6 mmol/L (133-146)
[2017-12-19 15:24] LABS: Actual Bicarbonate (HCO3a) 23.3 mEq/L (22-26); Base Excess (BEa) -2.7 mEq/L (0 (+/-) 2.5); CO2 Tension 46.4 mmHg (35.0-45.0); Carboxyhemoglobin (COHb) 1.7 gm% (0.0-3.0); Hematocrit-ABG 25.4 % (42.0-52.0); Hemoglobin (Hb) 9.3 g/dL (14.0-18.0); O2 Tension (PaO2) 327.8 mmHg (80.0-100.0); pH, Arterial 7.32 (7.35-7.45)
[2017-12-19 15:24] LABS: Calcium, Ionized 1.02 mmol/L (1.16-1.32); Chloride (ABG LAB) 103 mmol/L (98-106)
[2017-12-19 15:25] LABS: Actual Bicarbonate (HCO3a) 23.6 mEq/L (22-26); Base Excess (BEa) -3.1 mEq/L (0 (+/-) 2.5); CO2 Tension 50.1 mmHg (35.0-45.0); Carboxyhemoglobin (COHb) 1.8 gm% (0.0-3.0); Hematocrit-ABG 26.6 % (42.0-52.0); O2 Tension (PaO2) 310.4 mmHg (80.0-100.0); pH, Arterial 7.29 (7.35-7.45)
[2017-12-19 15:25] LABS: Analyzer IN Cardio OR; Potassium - ABG Lab 4.4 mmol/L (3.70-5.30); Puncture Site ALINE
[2017-12-19 15:26] LABS: Analyzer IN Cardio OR; Calcium, Ionized 1.1 mmol/L (1.12-1.30); Potassium - ABG Lab 4.5 mmol/L (3.70-5.30); Puncture Site ALINE
== END 2017-12-18 17:10 | disposition home or self-care (01) | DRG 235 ==
LOC: SURG A 12-13 06:42 → CCU 12-13 09:47 → EDSTATUS 12-13 12:00 → IMCU/EMU 12-15 00:05 → 2NO 12-17 08:13
PROVIDERS: ADMIT Thoracic Surgery (Cardiothoracic Vascular Surgery); ATTEND Thoracic Surgery (Cardiothoracic Vascular Surgery)
PROC: 02100Z9 Bypass Coronary Artery, One Artery from Left Internal Mammary, Open Approach (ICD-10-PCS; principal; 2017-12-13)
PROC: 021009W Bypass Coronary Artery, One Artery from Aorta with Autologous Venous Tissue, Open Approach (ICD-10-PCS; 2017-12-13)
PROC: 06BQ4ZZ Excision of Left Saphenous Vein, Percutaneous Endoscopic Approach (ICD-10-PCS; 2017-12-13)
PROC: 5A1221Z Performance of Cardiac Output, Continuous (ICD-10-PCS; 2017-12-13)
DX: I25.10 Atherosclerotic heart disease of native coronary artery without angina pectoris (principal); J96.01 Acute respiratory failure with hypoxia; G47.33 Obstructive sleep apnea (adult) (pediatric); J44.9 Chronic obstructive pulmonary disease, unspecified; I10 Essential (primary) hypertension; M19.90 Unspecified osteoarthritis, unspecified site; E03.9 Hypothyroidism, unspecified; E78.5 Hyperlipidemia, unspecified; Z86.73 Personal history of transient ischemic attack (TIA), and cerebral infarction without residual deficits; Z87.891 Personal history of nicotine dependence; E11.9 Type 2 diabetes mellitus without complications; Z82.49 Family history of ischemic heart disease and other diseases of the circulatory system
CPT/HCPCS: 36416; 71045; 80048; 82805; 85025; 85027; 85610; 85730; 86850; 86900; 86901; 93005; 93010; 93798; 94002; 94150; 94640; A4216; J0360; J0690; J1100; J1642; J1644; J1815; J2001; J2250; J2405; J2440; J2704; J2720; J3010; J3475; J3480; J7050; J7620; P9045; S0017; S0028

== ENCOUNTER 2018-03-12 19:41 | Inpatient (IN) | payer MEDICARE ==
[2018-03-12] MEDS ORDERED: Lidocaine 1% w/Epinephrine 1:100K 20 ML VIAL ONE (20:27)
[2018-03-12] MEDS ORDERED: MEROPENEM 1 GM/50 ML 1 GM in Premix Bag 1 BAG IVPB SCH (20:45)
[2018-03-12 20:48] LABS: #Eosinphils 0.1 thou/uL (0.0-0.7); #Lymphocytes 1.6 thou/uL (1.20-3.40); #Monocytes 0.7 thou/uL (0.11-0.59); #Neutrophils 6.3 thou/uL (1.40-6.50); %Basophils 0.6 % (0.0-1.0); %Lymphocytes 18.5 % (21.0-51.0); %Monocytes 8.4 % (0.0-10.0); %Neutrophils 71.5 % (42.0-75.0); Hemoglobin 12.4 g/dL (14.0-18.0); Mean Corpuscular Hemoglobin 29.1 pg (27.0-31.0); Mean Corpuscular Volume 88.3 fl (80.0-94.0); Mean Platelet Volume 6.9 fL (7.4-10.4); Platelet Count 209 thou/uL (130-400); RBC Distribution Width 14.1 % (11.5-14.5); Red Blood Cell (RBC) Count 4.25 mill/uL (4.70-6.10); White Blood Cell (WBC) Count 8.8 thou/uL (4.8-10.8)
[2018-03-12] MEDS ORDERED: Morphine 4 MG/ML VIAL ONE (20:58)
[2018-03-12 21:10] LABS: ALT (SGPT) 16 U/L (8-55); AST (SGOT) 14 U/L (5-34); Albumin 3.9 g/dL (3.4-4.8); Alkaline Phosphatase 66 U/L (40-150); Anion Gap 12 mmol/L (10-20); BUN (Urea Nitrogen) 16 mg/dL (8.4-25.7); Bilirubin, Total 1.4 mg/dL (0.2-1.2); Calc. Creatinine Clearance 0 mL/min (70-130); Carbon Dioxide 24 mmol/L (23-31); Chloride 107 mmol/L (98-107); Estimated GFR-MDRD 84; Globulin 3.1 g/dL (2.4-3.5); Glucose 110 mg/dL (83-110); Potassium 4.2 mmol/L (3.5-5.1); Sodium 139 mmol/L (136-145)
[2018-03-12 23:53] VITALS: BMI 36.6
[2018-03-13] MEDS ORDERED: VANCOMYCIN/ RENALLY ADJUST ANTIBIOTICS IVPB PRN (01:27)
[2018-03-13] MEDS ORDERED: Mag-Al 1200 mg/1200 mg/30 ML UDCUP PO PRN (01:28)
[2018-03-13] MEDS ORDERED: Ondansetron HCl/PF 4 MG/2 ML Vial IVP PRN (01:28)
[2018-03-13] MEDS ORDERED: Calcium Carbonate 500 MG ChewTAB PO PRN (01:28)
[2018-03-13] MEDS ORDERED: Ondansetron ODT 4 MG TAB PO PRN (01:28)
[2018-03-13] MEDS ORDERED: Nitroglycerin 0.4 MG TAB (25 Tab Bottle) PO PRN (01:28)
[2018-03-13] MEDS ORDERED: Senokot 8.6 MG TAB PO PRN (01:28)
[2018-03-13] MEDS ORDERED: Aspirin 81 mg Enteric Coated Tablet PO SCH (01:30)
--- NOTE | 2018-03-13 02:04 | HP ---
DATE OF ADMISSION: 03/12/2018 The patient was seen and examined on 03/12/2018. CHIEF COMPLAINT: Swelling, redness, and pain on left thigh. HISTORY OF PRESENT ILLNESS: The patient is a 72-year-old male with coronary artery disease with rece nt coronary artery bypass grafting, presented to the emergency room with above complaints. Over the last two weeks, patient has worsening swelling along with redness and pain over his left thi gh. This pain got worse today, for which he presented to the emergency room. He also had subjective fever; however, did not record his temperature. He tried Aleve without much relief. He denies any recent trauma, nausea, vomiting, diarrhea, dysuria, hematuria, urgency, cough, shortness of breath, o r wheezing. In the emergency room, initial vital signs showed temperature 98.7, respirations 18, pulse rate of 81 with a blood pressure 138/69 with O2 saturation 96% on room air. His workup was consistent with abs cess over this left thigh. He underwent incision and drainage of the abscess that showed clear fluid . He received vancomycin and meropenem with IV fluids in the emergency room. PAST MEDICAL HISTORY: 1. Coronary artery disease, status post CABG in December of this year. 2. Hypertension. 3. Chronic obstructive pulmonary disease. 4. Degenerative joint disease. 5. Hypothyroidism. 6. History of cerebrovascular accident. 7. Bilateral hearing deficits. PAST SURGICAL HISTORY: 1. Recent CABG. 2. Nasal surgery. 3. Cochlear implant. 4. Right knee surgery. 5. Bypass in 12/2017. ALLERGIES: Patient is allergic to CODEINE and SULFA. CURRENT HOME MEDICATIONS: Aspirin 81 mg daily, vitamin D 2000 units daily, Lasix 40 mg daily, levoth yroxine 150 mcg daily, meloxicam 15 mg daily, Lopressor 25 mg daily, multivitamin 1 tablet daily, Zoc or 10 mg at bedtime. SOCIAL HISTORY: The patient is a former smoker, quit in 2012. He drinks on and off. Denies any christianne g use. FAMILY HISTORY: Negative for premature coronary artery disease. REVIEW OF SYSTEMS: The following complete review of systems was negative, unless otherwise mentioned in the HPI or below: Constitutional: Weight loss or gain, ability to conduct usual activities. Sk in: Rash, itching. Eyes: Double vision, pain. ENT/Mouth: Nose bleeding, neck stiffness, pain, te nderness. Cardiovascular: Palpitations, dyspnea on exertion, orthopnea. Respiratory: Shortness of breath, wheezing, cough, hemoptysis, fever or night sweats. Gastrointestinal: Poor appetite, abdom inal pain, heartburn, nausea, vomiting, constipation, or diarrhea. Genitourinary: Urgency, frequenc y, dysuria, nocturia. Musculoskeletal: Pain, swelling. Neurologic/Psychiatric: Anxiety, depressio n. Allergy/Immunologic: Skin rash, bleeding tendency. PHYSICAL EXAMINATION: VITAL SIGNS: As discussed above. GENERAL: A 72-year-old male, in no apparent distress. Pain over the left thigh has somewhat improve d after incision and drainage. HEENT: Head atraumatic, normocephalic, sclerae are anicteric. Moist mucous membrane, no oral lesion . NECK: Supple, no JVD appreciated. No carotid bruit. LUNGS: Clear to auscultation bilaterally, no wheezing, rales, or rhonchi. HEART: S1, S2 present. Regular rate and rhythm. Healed midline scar from previous CABG. No heaves or pulsation. ABDOMEN: Soft, nontender, bowel sounds present. EXTREMITIES: 1+ edema in bilateral lower extremities. There was significant swelling and erythema ov er his left thigh. Dressing noted. SKIN: As discussed above. LYMPH NODES: No palpable lymph nodes in the neck. NEUROLOGIC: Grossly nonfocal, moves all four extremities. PSYCHIATRIC: Alert, awake, oriented x3. LABORATORY AND X-RAY FINDINGS: CBC showed WBC 8.8 with platelet count of 209, hemoglobin of 12.4. C hemistry showed sodium 139, potassium 4.2, chloride 107, bicarbonate 24, BUN 16, creatinine 0.89. To michelle bilirubin 1.4, bilirubin in the past have been in normal range. Blood cultures have been sent. Chest x-ray last admission by my review was negative for infiltrate. IMPRESSION AND PLAN: 1. Cellulitis of the left lower extremity with abscess, status post incision and drainage. The michael ent will continue vancomycin and meropenem. We will await blood cultures. We will consult Wound Car e. 2. Coronary artery disease, status post recent coronary artery bypass graft. We will continue aspir in and beta mika. 3. Hypothyroidism. We will continue levothyroxine. 4. Hypertension. We will continue his home medications including Lasix. 5. Hyperlipidemia. We will hold Zocor due to abnormal liver function tests. His bilirubin has been normal in the past. 6. Abnormal LFTs. Plan as discussed above. 7. Obesity with a BMI 36.7. Lifestyle modification emphasized. 8. Bilateral hearing loss. Patient uses hearing aids. 9. Degenerative joint disease. 10. Plan of care was discussed with the patient in detail. He stated understanding. 11. The patient will probably require 2-3 days for stabilization. He needs IV antibiotics. 12. Former smoker. 13. Normochromic normocytic anemia. 14. Chronic kidney disease, stage 2.
[2018-03-13] MEDS: Acetaminophen 325 MG TAB PO PRN ×2 (03:07→09:57)
[2018-03-13] MEDS: Levothyroxine 150 MCG TAB PO SCH (05:26)
[2018-03-13] MEDS: MEROPENEM 1 GM/50 ML 1 GM in Premix Bag 1 BAG IVPB SCH ×3 (05:27→22:45)
--- NOTE | 2018-03-13 09:46 | PDOC.PN ---
- Subjective Encounter Start Date: 03/13/18 Encounter Start Time: 09:00 -: old records requested/rev Patient seen and examined for left leg cellulitis. still has pain in leg, No new complaints. No overnight events - Objective Resuscitation Status: Resuscitation Status FULL:Full Resuscitation MAR Reviewed: Yes Vital Signs & Weight: Vital Signs (12 hours) Temp Pulse Resp BP Pulse Ox 03/13/18 07:13 97.9 F 66 20 155/83 H 94 L 03/13/18 06:42 99 03/13/18 03:09 98.8 F 68 18 128/71 96 03/12/18 23:10 98.3 F 72 19 167/77 H 99 Weight Admit Weight 241 lb 1.6 oz Weight 241 lb 1.6 oz I&O: 03/12/18 03/13/18 03/14/18 06:59 06:59 06:59 Intake Total 620 Balance 620 Result Diagrams: 03/12/18 20:39 03/12/18 20:39 Phys Exam - Physical Examination Constitutional: NAD HEENT: PERRLA, moist MMs, sclera anicteric Neck: no JVD, supple Respiratory: no wheezing, no rales, no rhonchi Cardiovascular: RRR, no significant murmur, no rub Gastrointestinal: soft, non-tender, no distention, positive bowel sounds Musculoskeletal: no edema, pulses present left leg (thigh) cellulitis with abscess Neurological: non-focal, normal sensation, moves all 4 limbs Lymphatic: no nodes Psychiatric: normal affect, A&O x 3 Skin: no rash, normal turgor Dx/Plan (1) Cellulitis and abscess of left lower extremity Code(s): L03.116 - CELLULITIS OF LEFT LOWER LIMB; L02.416 - CUTANEOUS ABSCESS OF LEFT LOWER LIMB Status: Acute Comment: s/p I & D (2) Anemia, normocytic normochromic Code(s): D64.9 - ANEMIA, UNSPECIFIED Status: Chronic (3) CAD (coronary artery disease) Code(s): I25.10 - ATHSCL HEART DISEASE OF [place] CORONARY ARTERY W/O ANG PCTRS Status: Chronic (4) CKD (chronic kidney disease) stage 2, GFR 60-89 ml/min Code(s): N18.2 - CHRONIC KIDNEY DISEASE, STAGE 2 (MILD) Status: Chronic (5) DJD (degenerative joint disease) Code(s): M19.90 - UNSPECIFIED OSTEOARTHRITIS, UNSPECIFIED SITE Status: Chronic (6) Deafness, bilateral Code(s): H91.93 - UNSPECIFIED HEARING LOSS, BILATERAL Status: Chronic (7) Dyslipidemia Code(s): E78.5 - HYPERLIPIDEMIA, UNSPECIFIED Status: Chronic (8) H/O: CVA (cerebrovascular accident) Code(s): Z86.73 - PRSNL HX OF TIA (TIA), AND CEREB INFRC W/O RESID DEFICITS Status: Chronic (9) Hypertension Code(s): I10 - ESSENTIAL (PRIMARY) HYPERTENSION Status: Chronic (10) Hypothyroidism Code(s): E03.9 - HYPOTHYROIDISM, UNSPECIFIED Status: Chronic (11) Obesity (BMI 30-39.9) Code(s): E66.9 - OBESITY, UNSPECIFIED Status: Chronic - Plan cont current plan of care, continue antibiotics * continue vancomycin and meropenam * follow up on wound culture * pain control with pain meds * wound care * home medication reconciled * medication reviewed as below * symptomatic treatment. Review of Systems - Review of Systems Constitutional: negative: fever, chills, sweats, weakness, malaise, other Eyes: negative: Pain, Vision Change, Conjunctivae Inflammation, Eyelid Inflammation, Redness, Other ENT: negative: Ear Pain, Ear Discharge, Nose Pain, Nose Discharge, Nose Congestion, Mouth Pain, Mouth Swelling, Throat Pain, Throat Swelling, Other Respiratory: negative: Cough, Dry, Shortness of Breath, Hemoptysis, SOB with Excertion, Pleuritic Pain, Sputum, Wheezing Cardiovascular: negative: chest pain, palpitations, orthopnea, paroxysmal nocturnal dyspnea, edema, light headedness, other Gastrointestinal: negative: Nausea, Vomiting, Abdominal Pain, Diarrhea, Constipation, Melena, Hematochezia, Other Genitourinary: negative: Dysuria, Frequency, Incontinence, Hematuria, Retention , Other Musculoskeletal: Leg Pain. negative: Neck Pain, Shoulder Pain, Arm Pain, Back Pain, Hand Pain, Foot Pain, Other - Medications/Allergies Allergies/Adverse Reactions: Allergies Allergy/AdvReac Type Severity Reaction Status Date / Time codeine Allergy Severe Verified 03/13/18 00:12 Sulfa (Sulfonamide Allergy Anaphylaxis Verified 03/13/18 00:12 Antibiotics) Medications: Current Medications Acetaminophen (Tylenol) 650 mg PO Q4H PRN PRN Reason: Headache/Fever or Pain Last Admin: 03/13/18 03:07 Dose: 650 mg Al Hydroxide/Mg Hydroxide (Maalox) 30 ml PO Q6H PRN PRN Reason: Heartburn or Indigestion Aspirin (Ecotrin) 81 mg PO HS [facility] Calcium Carbonate (Tums) 1,000 mg PO Q4H PRN PRN Reason: Heartburn or Indigestion Docusate Sodium (Colace) 100 mg PO BID [facility] Enoxaparin Sodium (Lovenox) 40 mg SC 2100 [facility] Famotidine (Pepcid) 20 mg PO BID [facility] Furosemide (Lasix) 40 mg PO DAILY [facility] Meropenem 1 gm/ Device 50 mls @ 200 mls/hr IVPB Q8HR [facility] Last Admin: 03/13/18 05:27 Dose: 50 mls Vancomycin HCl 1.5 gm/ Sodium (Chloride) 300 mls @ 150 mls/hr IVPB Q12HR [facility] Levothyroxine Sodium (Synthroid) 150 mcg PO 0600 [facility] Last Admin: 03/13/18 05:26 Dose: 150 mcg Meloxicam (Mobic) 15 mg PO DAILY [facility] Metoprolol Tartrate (Lopressor) 25 mg PO DAILY [facility] Miscellaneous Medication (Pharmacy To Dose) 1 each IVPB PRN PRN PRN Reason: Pharmacy to dose Nitroglycerin (Nitrostat) 0.4 mg PO Q5MIN PRN PRN Reason: Chest Pain Ondansetron HCl (Zofran Odt) 4 mg PO Q6H PRN PRN Reason: Nausea/Vomiting Ondansetron HCl (Zofran) 4 mg IVP Q6H PRN PRN Reason: Nausea/Vomiting Senna (Senokot) 2 tab PO HSPRN PRN PRN Reason: Constipation Sodium Chloride (Flush - Normal Saline) 10 ml IVF Q12HR [facility] Sodium Chloride (Flush - Normal Saline) 10 ml IVF PRN PRN PRN Reason: Saline Flush
[2018-03-13] MEDS: Furosemide 20 MG TAB PO SCH (09:49)
[2018-03-13] MEDS: Docusate 100 MG CAP PO SCH ×2 (09:49→20:34)
[2018-03-13] MEDS: Metoprolol Tartrate 25 MG TAB PO SCH (09:49)
[2018-03-13] MEDS: Famotidine 20 MG TAB PO SCH ×2 (09:49→20:34)
[2018-03-13] MEDS: Meloxicam 15 MG TAB PO SCH (09:50)
[2018-03-13] MEDS: Vancomycin HCl 1.5 GM in Sodium Chloride 0.9% 250 ML 300 ML IVPB SCH ×2 (09:57→20:33)
[2018-03-13] MEDS ORDERED: Fentanyl 100 MCG/2 ML VIAL SLOW IVP PRN (13:40)
[2018-03-13] MEDS: Ketorolac Tromethamine 30 MG/ML VIAL IVP PRN ×2 (14:54→22:46)
[2018-03-13] MEDS: Aspirin 81 mg Enteric Coated Tablet PO SCH (20:34)
[2018-03-13] MEDS: Enoxaparin Sodium 40 MG/0.4 ML SYRINGE SC SCH (20:35)
[2018-03-14 05:25] LABS: #Basophils 0.1 thou/uL (0.0-0.2); #Eosinphils 0.3 thou/uL (0.0-0.7); #Monocytes 0.6 thou/uL (0.11-0.59); #Neutrophils 3.9 thou/uL (1.40-6.50); %Basophils 0.7 % (0.0-1.0); %Eosinophils 4.3 % (0.0-10.0); %Lymphocytes 29.2 % (21.0-51.0); %Monocytes 8.3 % (0.0-10.0); %Neutrophils 57.5 % (42.0-75.0); Hemoglobin 11.7 g/dL (14.0-18.0); Mean Corpuscular HGB CONC 32.8 g/dL (32.0-36.0); Mean Corpuscular Hemoglobin 29.1 pg (27.0-31.0); Mean Corpuscular Volume 88.6 fl (80.0-94.0); Mean Platelet Volume 7.4 fL (7.4-10.4); Platelet Count 202 thou/uL (130-400); RBC Distribution Width 14.2 % (11.5-14.5); Red Blood Cell (RBC) Count 4.03 mill/uL (4.70-6.10); White Blood Cell (WBC) Count 6.8 thou/uL (4.8-10.8)
[2018-03-14] MEDS: MEROPENEM 1 GM/50 ML 1 GM in Premix Bag 1 BAG IVPB SCH ×3 (05:30→22:25)
[2018-03-14] MEDS: Levothyroxine 150 MCG TAB PO SCH (05:31)
[2018-03-14 05:55] LABS: ALT (SGPT) 13 U/L (8-55); AST (SGOT) 12 U/L (5-34); Albumin 3.4 g/dL (3.4-4.8); Alkaline Phosphatase 63 U/L (40-150); Anion Gap 13 mmol/L (10-20); BUN (Urea Nitrogen) 16 mg/dL (8.4-25.7); Bilirubin, Total 0.6 mg/dL (0.2-1.2); Calc. Creatinine Clearance 115 mL/min (70-130); Calcium 8.5 mg/dL (7.8-10.44); Carbon Dioxide 23 mmol/L (23-31); Chloride 109 mmol/L (98-107); Estimated GFR-MDRD 86; Globulin 2.7 g/dL (2.4-3.5); Glucose 101 mg/dL (83-110); Potassium 3.9 mmol/L (3.5-5.1); Protein, Total 6.1 g/dL (5.8-8.1); Sodium 141 mmol/L (136-145)
[2018-03-14 08:22] LABS: Vancomycin, Trough 15.8 ug/mL
[2018-03-14] MEDS: Ketorolac Tromethamine 30 MG/ML VIAL IVP PRN ×2 (08:42→22:26)
[2018-03-14] MEDS: Metoprolol Tartrate 25 MG TAB PO SCH (08:46)
[2018-03-14] MEDS: Docusate 100 MG CAP PO SCH ×2 (08:46→20:36)
[2018-03-14] MEDS: Furosemide 20 MG TAB PO SCH (08:46)
[2018-03-14] MEDS: Famotidine 20 MG TAB PO SCH ×2 (08:47→20:27)
[2018-03-14] MEDS: Meloxicam 15 MG TAB PO SCH (08:47)
[2018-03-14] MEDS ORDERED: Non-Formulary Item 1 EACH (Cholecalciferol (Vitamin D3) [Vitamin D3] 2,000 UNIT) PO SCH (09:00)
--- NOTE | 2018-03-14 10:30 | PDOC.PN ---
- Subjective Encounter Start Date: 03/14/18 Encounter Start Time: 09:30 Patient seen and examined for cellulitis left leg. No new complaints. No overnight events - Objective Resuscitation Status: Resuscitation Status FULL:Full Resuscitation MAR Reviewed: Yes Vital Signs & Weight: Vital Signs (12 hours) Temp Pulse Resp BP BP Pulse Ox 03/14/18 08:00 97.8 F 61 18 154/84 H 96 03/14/18 04:00 97.7 F 70 20 148/91 H 96 03/14/18 00:00 98.2 F 63 20 162/89 H 96 Weight Admit Weight 241 lb 1.6 oz Weight 241 lb 1.6 oz I&O: 03/13/18 03/14/18 03/15/18 06:59 06:59 06:59 Intake Total 620 1030 Balance 620 1030 Result Diagrams: 03/14/18 04:16 03/14/18 04:16 Phys Exam - Physical Examination Constitutional: NAD HEENT: PERRLA, moist MMs, sclera anicteric Neck: no JVD, supple Respiratory: no wheezing, no rales, no rhonchi Cardiovascular: RRR, no significant murmur, no rub Gastrointestinal: soft, non-tender, no distention, positive bowel sounds Musculoskeletal: no edema, pulses present cellultis improving, abscess with dressing Neurological: non-focal, normal sensation, moves all 4 limbs Psychiatric: normal affect, A&O x 3 Skin: no rash, normal turgor Dx/Plan (1) Cellulitis and abscess of left lower extremity Code(s): L03.116 - CELLULITIS OF LEFT LOWER LIMB; L02.416 - CUTANEOUS ABSCESS OF LEFT LOWER LIMB Status: Acute Comment: s/p I & D (2) Anemia, normocytic normochromic Code(s): D64.9 - ANEMIA, UNSPECIFIED Status: Chronic (3) CAD (coronary artery disease) Code(s): I25.10 - ATHSCL HEART DISEASE OF [place] CORONARY ARTERY W/O ANG PCTRS Status: Chronic (4) CKD (chronic kidney disease) stage 2, GFR 60-89 ml/min Code(s): N18.2 - CHRONIC KIDNEY DISEASE, STAGE 2 (MILD) Status: Chronic (5) DJD (degenerative joint disease) Code(s): M19.90 - UNSPECIFIED OSTEOARTHRITIS, UNSPECIFIED SITE Status: Chronic (6) Deafness, bilateral Code(s): H91.93 - UNSPECIFIED HEARING LOSS, BILATERAL Status: Chronic (7) Dyslipidemia Code(s): E78.5 - HYPERLIPIDEMIA, UNSPECIFIED Status: Chronic (8) H/O: CVA (cerebrovascular accident) Code(s): Z86.73 - PRSNL HX OF TIA (TIA), AND CEREB INFRC W/O RESID DEFICITS Status: Chronic (9) Hypertension Code(s): I10 - ESSENTIAL (PRIMARY) HYPERTENSION Status: Chronic (10) Hypothyroidism Code(s): E03.9 - HYPOTHYROIDISM, UNSPECIFIED Status: Chronic (11) Obesity (BMI 30-39.9) Code(s): E66.9 - OBESITY, UNSPECIFIED Status: Chronic - Plan cont current plan of care, plan discussed w/ family, continue antibiotics * medication reviewed as below * symptomatic treatment * continue meropenam and vancomycin * on discharge cipro and doxy * pain control * wound care * discussed with daughter * may need home health for wound care on discharge, she has daughter who is nurse. Review of Systems - Review of Systems Eyes: negative: Pain, Vision Change, Conjunctivae Inflammation, Eyelid Inflammation, Redness, Other ENT: negative: Ear Pain, Ear Discharge, Nose Pain, Nose Discharge, Nose Congestion, Mouth Pain, Mouth Swelling, Throat Pain, Throat Swelling, Other Respiratory: negative: Cough, Dry, Shortness of Breath, Hemoptysis, SOB with Excertion, Pleuritic Pain, Sputum, Wheezing Cardiovascular: negative: chest pain, palpitations, orthopnea, paroxysmal nocturnal dyspnea, edema, light headedness, other Gastrointestinal: negative: Nausea, Vomiting, Abdominal Pain, Diarrhea, Constipation, Melena, Hematochezia, Other Genitourinary: negative: Dysuria, Frequency, Incontinence, Hematuria, Retention , Other Musculoskeletal: Leg Pain. negative: Neck Pain, Shoulder Pain, Arm Pain, Back Pain, Hand Pain, Foot Pain, Other Skin: negative: Rash, Lesions, Guilherme, Bruising, Other - Medications/Allergies Allergies/Adverse Reactions: Allergies Allergy/AdvReac Type Severity Reaction Status Date / Time codeine Allergy Severe Verified 03/13/18 00:12 Sulfa (Sulfonamide Allergy Anaphylaxis Verified 03/13/18 00:12 Antibiotics) Medications: Current Medications Acetaminophen (Tylenol) 650 mg PO Q4H PRN PRN Reason: Headache/Fever or Pain Last Admin: 03/13/18 09:57 Dose: 650 mg Al Hydroxide/Mg Hydroxide (Maalox) 30 ml PO Q6H PRN PRN Reason: Heartburn or Indigestion Aspirin (Ecotrin) 81 mg PO HS [facility] Last Admin: 03/13/18 20:34 Dose: 81 mg Calcium Carbonate (Tums) 1,000 mg PO Q4H PRN PRN Reason: Heartburn or Indigestion Cholecalciferol (Vitamin D3) 2,000 units PO DAILY [facility] Last Admin: 03/14/18 08:47 Dose: 2,000 units Docusate Sodium (Colace) 100 mg PO BID [facility] Last Admin: 03/14/18 08:46 Dose: 100 mg Enoxaparin Sodium (Lovenox) 40 mg SC 2100 [facility] Last Admin: 03/13/18 20:35 Dose: 40 mg Famotidine (Pepcid) 20 mg PO BID [facility] Last Admin: 03/14/18 08:47 Dose: 20 mg Fentanyl (Sublimaze) 25 mcg SLOW IVP Q2H PRN PRN Reason: Pain Furosemide (Lasix) 40 mg PO DAILY [facility] Last Admin: 03/14/18 08:46 Dose: 40 mg Meropenem 1 gm/ Device 50 mls @ 200 mls/hr IVPB Q8HR [facility] Last Admin: 03/14/18 05:30 Dose: 50 mls Vancomycin HCl 1.5 gm/ Sodium (Chloride) 300 mls @ 150 mls/hr IVPB Q12HR [facility] Last Admin: 03/13/18 20:33 Dose: 300 mls Ketorolac Tromethamine (Toradol) 15 mg IVP Q6H PRN PRN Reason: Pain Stop: 03/18/18 13:41 Last Admin: 03/14/18 08:42 Dose: 15 mg Levothyroxine Sodium (Synthroid) 150 mcg PO 0600 [facility] Last Admin: 03/14/18 05:31 Dose: 150 mcg Meloxicam (Mobic) 15 mg PO DAILY [facility] Last Admin: 03/14/18 08:47 Dose: 15 mg Metoprolol Tartrate (Lopressor) 25 mg PO DAILY [facility] Last Admin: 03/14/18 08:46 Dose: 25 mg Miscellaneous Medication (Pharmacy To Dose) 1 each IVPB PRN PRN PRN Reason: Pharmacy to dose Nitroglycerin (Nitrostat) 0.4 mg PO Q5MIN PRN PRN Reason: Chest Pain Ondansetron HCl (Zofran Odt) 4 mg PO Q6H PRN PRN Reason: Nausea/Vomiting Ondansetron HCl (Zofran) 4 mg IVP Q6H PRN PRN Reason: Nausea/Vomiting Senna (Senokot) 2 tab PO HSPRN PRN PRN Reason: Constipation Simvastatin (Zocor) 10 mg PO HS TEVIN Sodium Chloride (Flush - Normal Saline) 10 ml IVF Q12HR [facility] Last Admin: 03/14/18 08:43 Dose: 10 ml Sodium Chloride (Flush - Normal Saline) 10 ml IVF PRN PRN PRN Reason: Saline Flush
[2018-03-14] MEDS: Vancomycin HCl 1.5 GM in Sodium Chloride 0.9% 250 ML 300 ML IVPB SCH ×2 (11:21→20:26)
[2018-03-14] MEDS: Simvastatin 5 MG TAB PO SCH (20:27)
[2018-03-14] MEDS: Enoxaparin Sodium 40 MG/0.4 ML SYRINGE SC SCH (20:27)
[2018-03-14] MEDS: Aspirin 81 mg Enteric Coated Tablet PO SCH (20:28)
[2018-03-14] MEDS ORDERED: SIMVASTATIN PO SCH (21:00)
[2018-03-15] MEDS: Levothyroxine 150 MCG TAB PO SCH (05:18)
[2018-03-15] MEDS: MEROPENEM 1 GM/50 ML 1 GM in Premix Bag 1 BAG IVPB SCH ×3 (05:18→21:32)
[2018-03-15] MEDS: Vancomycin HCl 1.5 GM in Sodium Chloride 0.9% 250 ML 300 ML IVPB SCH ×2 (09:19→21:32)
[2018-03-15] MEDS: Famotidine 20 MG TAB PO SCH ×2 (09:24→21:31)
[2018-03-15] MEDS: Metoprolol Tartrate 25 MG TAB PO SCH (09:25)
[2018-03-15] MEDS: Furosemide 20 MG TAB PO SCH (09:25)
[2018-03-15] MEDS: Meloxicam 15 MG TAB PO SCH (09:25)
[2018-03-15] MEDS: Docusate 100 MG CAP PO SCH ×2 (09:25→21:31)
--- NOTE | 2018-03-15 09:45 | PDOC.PN ---
- Subjective Encounter Start Date: 03/15/18 Encounter Start Time: 08:00 Patient seen and examined for cellulitis. No new complaints. No overnight events - Objective Resuscitation Status: Resuscitation Status FULL:Full Resuscitation MAR Reviewed: Yes Vital Signs & Weight: Vital Signs (12 hours) Temp Pulse Resp BP BP Pulse Ox 03/15/18 07:29 98.0 F 75 18 176/94 H 96 03/15/18 03:50 98.0 F 72 20 158/87 H 95 Weight Admit Weight 241 lb 1.6 oz Weight 241 lb 1.6 oz I&O: 03/14/18 03/15/18 03/16/18 06:59 06:59 06:59 Intake Total 1030 1630 Balance 1030 1630 Result Diagrams: 03/14/18 04:16 03/14/18 04:16 Phys Exam - Physical Examination Constitutional: NAD HEENT: PERRLA, moist MMs, sclera anicteric Neck: no JVD, supple Respiratory: no wheezing, no rales, no rhonchi Cardiovascular: RRR, no significant murmur, no rub Gastrointestinal: soft, non-tender, no distention, positive bowel sounds Musculoskeletal: no edema, pulses present left leg (thigh) cellulitis improving Neurological: non-focal, normal sensation, moves all 4 limbs Psychiatric: normal affect, A&O x 3 Skin: no rash, normal turgor Dx/Plan (1) Cellulitis and abscess of left lower extremity Code(s): L03.116 - CELLULITIS OF LEFT LOWER LIMB; L02.416 - CUTANEOUS ABSCESS OF LEFT LOWER LIMB Status: Acute Comment: s/p I & D (2) Anemia, normocytic normochromic Code(s): D64.9 - ANEMIA, UNSPECIFIED Status: Chronic (3) CAD (coronary artery disease) Code(s): I25.10 - ATHSCL HEART DISEASE OF [place] CORONARY ARTERY W/O ANG PCTRS Status: Chronic (4) CKD (chronic kidney disease) stage 2, GFR 60-89 ml/min Code(s): N18.2 - CHRONIC KIDNEY DISEASE, STAGE 2 (MILD) Status: Chronic (5) DJD (degenerative joint disease) Code(s): M19.90 - UNSPECIFIED OSTEOARTHRITIS, UNSPECIFIED SITE Status: Chronic (6) Deafness, bilateral Code(s): H91.93 - UNSPECIFIED HEARING LOSS, BILATERAL Status: Chronic (7) Dyslipidemia Code(s): E78.5 - HYPERLIPIDEMIA, UNSPECIFIED Status: Chronic (8) H/O: CVA (cerebrovascular accident) Code(s): Z86.73 - PRSNL HX OF TIA (TIA), AND CEREB INFRC W/O RESID DEFICITS Status: Chronic (9) Hypertension Code(s): I10 - ESSENTIAL (PRIMARY) HYPERTENSION Status: Chronic (10) Hypothyroidism Code(s): E03.9 - HYPOTHYROIDISM, UNSPECIFIED Status: Chronic (11) Obesity (BMI 30-39.9) Code(s): E66.9 - OBESITY, UNSPECIFIED Status: Chronic - Plan cont current plan of care, continue antibiotics, 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 Review of Systems - Review of Systems Constitutional: negative: fever, chills, sweats, weakness, malaise, other Eyes: negative: Pain, Vision Change, Conjunctivae Inflammation, Eyelid Inflammation, Redness, Other ENT: negative: Ear Pain, Ear Discharge, Nose Pain, Nose Discharge, Nose Congestion, Mouth Pain, Mouth Swelling, Throat Pain, Throat Swelling, Other Respiratory: negative: Cough, Dry, Shortness of Breath, Hemoptysis, SOB with Excertion, Pleuritic Pain, Sputum, Wheezing Cardiovascular: negative: chest pain, palpitations, orthopnea, paroxysmal nocturnal dyspnea, edema, light headedness, other Gastrointestinal: negative: Nausea, Vomiting, Abdominal Pain, Diarrhea, Constipation, Melena, Hematochezia, Other Genitourinary: negative: Dysuria, Frequency, Incontinence, Hematuria, Retention , Other Musculoskeletal: Leg Pain. negative: Neck Pain, Shoulder Pain, Arm Pain, Back Pain, Hand Pain, Foot Pain, Other Skin: negative: Rash, Lesions, Guilherme, Bruising, Other - Medications/Allergies Allergies/Adverse Reactions: Allergies Allergy/AdvReac Type Severity Reaction Status Date / Time codeine Allergy Severe Verified 03/13/18 00:12 Sulfa (Sulfonamide Allergy Anaphylaxis Verified 03/13/18 00:12 Antibiotics) Medications: Current Medications Acetaminophen (Tylenol) 650 mg PO Q4H PRN PRN Reason: Headache/Fever or Pain Last Admin: 03/13/18 09:57 Dose: 650 mg Al Hydroxide/Mg Hydroxide (Maalox) 30 ml PO Q6H PRN PRN Reason: Heartburn or Indigestion Aspirin (Ecotrin) 81 mg PO HS [facility] Last Admin: 03/14/18 20:28 Dose: 81 mg Calcium Carbonate (Tums) 1,000 mg PO Q4H PRN PRN Reason: Heartburn or Indigestion Cholecalciferol (Vitamin D3) 2,000 units PO DAILY [facility] Last Admin: 03/15/18 09:20 Dose: 2,000 units Docusate Sodium (Colace) 100 mg PO BID [facility] Last Admin: 03/15/18 09:25 Dose: 100 mg Enoxaparin Sodium (Lovenox) 40 mg SC 2100 [facility] Last Admin: 03/14/18 20:27 Dose: 40 mg Famotidine (Pepcid) 20 mg PO BID [facility] Last Admin: 03/15/18 09:24 Dose: 20 mg Fentanyl (Sublimaze) 25 mcg SLOW IVP Q2H PRN PRN Reason: Pain Furosemide (Lasix) 40 mg PO DAILY [facility] Last Admin: 03/15/18 09:25 Dose: 40 mg Meropenem 1 gm/ Device 50 mls @ 200 mls/hr IVPB Q8HR [facility] Last Admin: 03/15/18 05:18 Dose: 50 mls Vancomycin HCl 1.5 gm/ Sodium (Chloride) 300 mls @ 150 mls/hr IVPB Q12HR [facility] Last Admin: 03/15/18 09:19 Dose: 300 mls Ketorolac Tromethamine (Toradol) 15 mg IVP Q6H PRN PRN Reason: Pain Stop: 03/18/18 13:41 Last Admin: 03/14/18 22:26 Dose: 15 mg Levothyroxine Sodium (Synthroid) 150 mcg PO 0600 [facility] Last Admin: 03/15/18 05:18 Dose: 150 mcg Meloxicam (Mobic) 15 mg PO DAILY [facility] Last Admin: 03/15/18 09:25 Dose: 15 mg Metoprolol Tartrate (Lopressor) 25 mg PO DAILY [facility] Last Admin: 03/15/18 09:25 Dose: 25 mg Miscellaneous Medication (Pharmacy To Dose) 1 each IVPB PRN PRN PRN Reason: Pharmacy to dose Nitroglycerin (Nitrostat) 0.4 mg PO Q5MIN PRN PRN Reason: Chest Pain Ondansetron HCl (Zofran Odt) 4 mg PO Q6H PRN PRN Reason: Nausea/Vomiting Ondansetron HCl (Zofran) 4 mg IVP Q6H PRN PRN Reason: Nausea/Vomiting Senna (Senokot) 2 tab PO HSPRN PRN PRN Reason: Constipation Simvastatin (Zocor) 10 mg PO HS [facility] Last Admin: 03/14/18 20:27 Dose: 10 mg Sodium Chloride (Flush - Normal Saline) 10 ml IVF Q12HR [facility] Last Admin: 03/15/18 09:27 Dose: 10 ml Sodium Chloride (Flush - Normal Saline) 10 ml IVF PRN PRN PRN Reason: Saline Flush
[2018-03-15] MEDS: Ketorolac Tromethamine 30 MG/ML VIAL IVP PRN (11:03)
--- NOTE | 2018-03-15 11:17 | PQF ---
CLINICAL DOCUMENTATION IMPROVEMENT CLARIFICATION FORM: ICD-10 Updated PLEASE DO AN ADDENDUM TO THE PROGRESS NOTE WITH ANY DOCUMENTATION UPDATES OR ADDITIONS AND CARRY THROUGH TO DC SUMMARY. THANK YOU. DATE: 03/15, 03/16 ATTN: DR. DEBRA ANDERSON / DR. HENRY HARGROVE Please exercise your independent, professional judgment in responding to the clarification form. Clinical indicators are provided on the bottom of this form for your review Please check appropriate box(s): LEFT LOWER LIMB CELLULITIS W/ABSCESS [ ] D/T Left Vein [place] for CABG in December 2017 [ ] Not D/T Left Vein [place] for CABG in December 2017 [ ] Other diagnosis [ x ] Unable to determine For continuity of documentation, please document condition throughout progress notes and discharge summary. Thank You. CLINICAL INDICATORS - SIGNS / SYMPTOMS / LABS ER NURSING DOCUMENTATION 03/12: PT HAD VEIN REMOVED IN DECEMBER, NOW HAS LARGE RAISED LESION TO L INNER THIGH ER PHYSICIAN DOCUMENTATION 03/12: C/O L LEG CYST ON THIGH FOR PAST SEVERAL WEEKS. REPORTS HE HAS HAD A KNOT THERE SINCE HIS BYPASS SURGERY (DECEMBER 2017) ATTENDING H&P DOCUMENTATION 03/12: HX PRESENT ILLNESS: PT WITH CAD W/RECENT CABG , PRESENTING TO ER W/SWELLING, REDNESS, & PAIN ON LEFT THIGH; IMPRESSION /PLAN: 1) CELLULITIS LLE W/ABSCESS, S/P I&D RISKS: RECENT CABG IN DECEMBER 2017 SWELLING, REDNESS L THIGH TREATMENT: IV ANTIBIOTICS (MEROPENEM & VANCOMYCIN 03/12 - PRESENT) WOUND CARE EVALUATION & TREATMENT INCISION & DRAINAGE IN ER THANK YOU! Shanae (This form is maintained as a part of the permanent medical record) 2014 [employer]. All Rights Reserved Shanae Amin RN, BSN [email or web address] Office: [phone] [facility]ITAL[facility]
[2018-03-15] MEDS: Enoxaparin Sodium 40 MG/0.4 ML SYRINGE SC SCH (21:30)
[2018-03-15] MEDS: Aspirin 81 mg Enteric Coated Tablet PO SCH (21:31)
[2018-03-15] MEDS: Simvastatin 5 MG TAB PO SCH (21:31)
[2018-03-16] MEDS: MEROPENEM 1 GM/50 ML 1 GM in Premix Bag 1 BAG IVPB SCH (05:38)
[2018-03-16] MEDS: Levothyroxine 150 MCG TAB PO SCH (05:38)
[2018-03-16] MEDS: Furosemide 20 MG TAB PO SCH (07:49)
[2018-03-16] MEDS: Famotidine 20 MG TAB PO SCH (07:49)
[2018-03-16] MEDS: Docusate 100 MG CAP PO SCH (07:49)
[2018-03-16] MEDS: Metoprolol Tartrate 25 MG TAB PO SCH (07:51)
[2018-03-16] MEDS: Meloxicam 15 MG TAB PO SCH (07:52)
[2018-03-16] MEDS: Vancomycin HCl 1.5 GM in Sodium Chloride 0.9% 250 ML 300 ML IVPB SCH (09:31)
[2018-03-16 12:30] VITALS: BP 161/76; TEMP 97.9
--- NOTE | 2018-03-16 13:04 | DIS ---
DATE OF ADMISSION: 03/12/2018 DATE OF DISCHARGE: 03/16/2018 DISPOSITION: Discharged home. PRIMARY CARE PROVIDER: Dr. Jeremias Barrientos. FINAL DIAGNOSES: Cellulitis, abscess left medial thigh, coronary artery disease, hypertension, and d yslipidemia. DISCHARGE MEDICATIONS: Lasix 40 mg a day, aspirin 81 mg a day, metoprolol 25 mg a day, Mobic 15 mg a day, Synthroid 150 mcg a day, Zocor 10 mg a day, Florastor 250 mg a day, doxycycline 100 mg p.o. b.i .d., and ciprofloxacin 500 mg p.o. b.i.d. ALLERGIES: CODEINE and SULFA. CODE STATUS: FULL. PENDING AT THE TIME OF DISCHARGE: Blood cultures, which are negative at 48 hours. HOSPITAL COURSE: [facility] at [place], he had an I&D of an abscess in his left medial thigh. His laboratory on admission, white count was normal at 8.8, follow up was 6.8 two days later, platelet count was no rmal, hemoglobin 12.4 and 11.7. Comp metabolic profile normal except for a bilirubin of 1.4, follow up 0.6. Toxicology, patient was started on meropenem and vancomycin. Unfortunately, the culture obt ained from the wound in the Emergency Room was sent to the Microbiology Department. No order for cul ture was put in, it was not done. The specimen is now 4+ days old and considered unreliable. The pa tient had a significant area of erythema around the abscess, which is markedly diminished to essentia lly gone. The patient has been afebrile during this hospital stay. He is being been no consultation s were obtained. No procedures were done other than the I&D of the abscess in the emergency room. T he patient is being discharged on Cipro 500 twice a day and doxycycline 100 twice a day for 10 days t o be followed up by Dr. Barrientos in 7 days. Home Health has been consulted for wound care. The lack o f the culture from the wound is truly unfortunate. I have instructed the patient if he starts runnin g fever, chills, sweats, starts getting more erythema around the wound or the wound started draining a purulent material to return to the emergency room.
[2018-03-16] MEDS ORDERED: Vancomycin HCl 1.25 GM in Sodium Chloride 0.9% 250 ML 250 ML IVPB SCH (21:00)
== END 2018-03-16 13:13 | disposition home or self-care (01) | DRG 603 ==
LOC: ERS 19:41 → T4-B 20:26
PROVIDERS: ADMIT Internal Medicine; ATTEND Internal Medicine
PROC: 0Y9D0ZZ Drainage of Left Upper Leg, Open Approach (ICD-10-PCS; principal; 2018-03-12)
DX: L02.416 Cutaneous abscess of left lower limb (principal); L03.116 Cellulitis of left lower limb; I25.10 Atherosclerotic heart disease of native coronary artery without angina pectoris; E03.9 Hypothyroidism, unspecified; E78.5 Hyperlipidemia, unspecified; E66.9 Obesity, unspecified; Z68.36 Body mass index [BMI] 36.0-36.9, adult; H91.93 Unspecified hearing loss, bilateral; I12.9 Hypertensive chronic kidney disease with stage 1 through stage 4 chronic kidney disease, or unspecified chronic kidney disease; N18.2 Chronic kidney disease, stage 2 (mild); D64.9 Anemia, unspecified; Z87.891 Personal history of nicotine dependence; Z88.5 Allergy status to narcotic agent; Z88.2 Allergy status to sulfonamides; Z79.899 Other long term (current) drug therapy; Z95.1 Presence of aortocoronary bypass graft
CPT/HCPCS: 10060; 36415; 80053; 80202; 83605; 83735; 85025; 87040; 94760; 96365; 96366; 96368; 96375; A4216; J1650; J1885; J2001; J2185; J2270; J3370; J7050

== ENCOUNTER 2018-05-01 08:17 | Outpatient (CLI) | payer MEDICARE ==
[2018-05-01] MEDS ORDERED: ISOVUE-370 76%-LOCM 1 ML ONE (13:05)
== END 2018-05-01 08:18 | disposition home or self-care (01) ==
LOC: BICCT 08:17
PROVIDERS: ATTEND Internal Medicine Cardiovascular Disease
DX: I25.119 Atherosclerotic heart disease of native coronary artery with unspecified angina pectoris (principal); R06.02 Shortness of breath; I70.90 Unspecified atherosclerosis; J44.9 Chronic obstructive pulmonary disease, unspecified; Z95.1 Presence of aortocoronary bypass graft
CPT/HCPCS: 71275; 82565

== ENCOUNTER 2018-05-14 20:30 | Outpatient (CLI) | payer MEDICARE | END 2018-05-14 20:31 | disposition home or self-care (01) | LOC: SLEEPLAB 20:30 | PROVIDERS: ATTEND Internal Medicine | DX: G47.33 Obstructive sleep apnea (adult) (pediatric) (principal); K21.9 Gastro-esophageal reflux disease without esophagitis; I51.89 Other ill-defined heart diseases; E66.9 Obesity, unspecified; Z68.35 Body mass index [BMI] 35.0-35.9, adult; I10 Essential (primary) hypertension; R35.1 Nocturia | CPT/HCPCS: 95811 ==

== ENCOUNTER 2018-06-12 13:24 | Outpatient (CLI) | payer MEDICARE ==
[2018-06-12 14:17] LABS: Hemoglobin 13.5 g/dL (14.0-18.0); Mean Corpuscular HGB CONC 34.9 g/dL (32.0-36.0); Mean Corpuscular Hemoglobin 31.7 pg (27.0-31.0); Mean Corpuscular Volume 90.9 fL (78.0-98.0); Platelet Count 199 thou/uL (130-400); RBC Distribution Width 14.3 % (11.5-14.5); Red Blood Cell (RBC) Count 4.26 mill/uL (4.70-6.10); White Blood Cell (WBC) Count 7.6 thou/uL (4.8-10.8)
[2018-06-12 14:44] LABS: Anion Gap 15 mmol/L (10-20); BUN (Urea Nitrogen) 21 mg/dL (8.4-25.7); Calc. Creatinine Clearance 0 mL/min (70-130); Calcium 9.4 mg/dL (7.8-10.44); Carbon Dioxide 22 mmol/L (23-31); Chloride 108 mmol/L (98-107); Estimated GFR-MDRD 68; Glucose 99 mg/dL (83-110); Potassium 4.4 mmol/L (3.5-5.1); Sodium 141 mmol/L (136-145)
== END 2018-06-12 13:25 | disposition home or self-care (01) ==
LOC: LABBT 13:24
PROVIDERS: ATTEND Neurological Surgery
DX: Z01.818 Encounter for other preprocedural examination (principal); M54.12 Radiculopathy, cervical region
CPT/HCPCS: 80048; 85027; 93005; 93010

== ENCOUNTER 2018-06-12 13:30 | Inpatient (IN) | payer MEDICARE ==
[2018-06-12 13:58] VITALS: BMI 36.1
[2018-06-14] MEDS ORDERED: Fentanyl 100 MCG/2 ML VIAL ONE ×2 (06:26→09:29)
[2018-06-14] MEDS ORDERED: Sodium Chloride 0.9% 10 ML ONE (06:37)
[2018-06-14] MEDS ORDERED: CEFAZOLIN/Water 2 GM/20 ML SYRINGE ONE (06:54)
[2018-06-14] MEDS ORDERED: Albuterol Sulfate HFA (OR ONLY) ONE (07:14)
[2018-06-14] MEDS ORDERED: ePHEDrine/0.9% NaCl/PF SYRINGE 50 mg/10 ml ONE ×2 (08:20→14:34)
[2018-06-14] MEDS ORDERED: Ondansetron HCl/PF 4 MG/2 ML Vial IVP PRN ×2 (09:11→09:22)
[2018-06-14] MEDS ORDERED: Promethazine HCl 25 MG/ML VIAL SLOW IVP PRN (09:11)
[2018-06-14] MEDS ORDERED: Promethazine HCl 25 MG/ML VIAL IM PRN ×2 (09:11→09:22)
[2018-06-14] MEDS ORDERED: diphenhydrAMINE 50 MG/ML VIAL IVP PRN (09:22)
[2018-06-14] MEDS ORDERED: diphenhydrAMINE 25 MG CAP PO PRN (09:22)
[2018-06-14] MEDS ORDERED: Bisacodyl 10 MG SUPP PR PRN (09:22)
[2018-06-14] MEDS ORDERED: tiZANidine HCl 4 MG TAB PO PRN (09:22)
[2018-06-14] MEDS ORDERED: Mag-Al 1200 mg/1200 mg/30 ML UDCUP PO PRN (09:22)
[2018-06-14] MEDS ORDERED: traMADol HCl 50 MG TAB PO PRN ×2 (09:22)
[2018-06-14] MEDS ORDERED: Milk Of Magnesia 30 ML UDCUP PO PRN (09:22)
[2018-06-14] MEDS ORDERED: Promethazine HCl 12.5 MG SUPP PR PRN (09:22)
[2018-06-14] MEDS ORDERED: Promethazine 25 MG TAB PO PRN (09:22)
[2018-06-14] MEDS ORDERED: HYDROcodone/Acetaminophen 10/325 mg Tablet PO PRN ×2 (09:22)
[2018-06-14] MEDS ORDERED: Morphine 4 MG/ML Carpuject SLOW IVP PRN (09:22)
--- NOTE | 2018-06-14 09:34 | OP ---
DATE OF PROCEDURE: 06/14/2018 SURGEON: Brent Diaz M.D. RECOVERY ROOM RN: Rashaun Moscoso PA-C PROCEDURE: Anterior cervical diskectomy C4 through C7, interbody arthrodesis. Anterior titanium ins trumentation C4-C7. PROCEDURE IN DETAIL: The patient was brought into the operating room and intubated. He was position ed supine in modest extension on a gel-filled donut. Incision was made in the right precervical area and dissecting medial sternocleidomastoid muscle, identified the anterior cervical spine and our lev el was confirmed by x-ray. The patient had dramatic and extensive anterior osteophytic disease compl etely obscuring the anatomy. We extensively debrided anterior osteophytes with a combination of olivier eurs and the drill. The disk space themselves were entirely collapsed and essentially absent. There were explored and any soft disc material was removed for the purpose of arthrodesis at each affected level. I did not attempt to place an interbody devices given the absence of necessary disk space. We next placed an anterior plate with some difficulty from C4, C5, C6 and C7. The wound was then ext ensively irrigated, immaculate hemostasis was secured, and the wound was closed in anatomic layers.
[2018-06-14] MEDS ORDERED: PROVENTIL INHALER 6.7 G (200 INHALATIONS) INH PRN ×2 (09:39→15:45)
[2018-06-14] MEDS ORDERED: Morphine 4 MG/ML VIAL SLOW IVP PRN (09:45)
[2018-06-14] MEDS ORDERED: Promethazine HCl 25 MG/ML VIAL ONE (10:59)
[2018-06-14] MEDS ORDERED: Glycopyrrolate 0.2 MG/ML 5 ML SYRINGE ONE (14:34)
[2018-06-14] MEDS ORDERED: Ondansetron HCl/PF 4 MG/2 ML Vial ONE (14:34)
[2018-06-14] MEDS ORDERED: PHENYLEPHRINE-NS 100 MCG/ML 10 ML SYRINGE ONE (14:34)
[2018-06-14] MEDS ORDERED: Lidocaine 1% PF 5 ML VIAL ONE (14:34)
[2018-06-14] MEDS ORDERED: PROPOFOL 200 MG/20 ML VIAL ONE (14:34)
[2018-06-14] MEDS: CEFAZOLIN/Water 2 GM/20 ML SYRINGE SLOW IVP SCH ×2 (16:06→23:12)
--- NOTE | 2018-06-14 16:32 | CON ---
DATE OF CONSULTATION: 06/14/2018 TIME OF SERVICE: 1500 PRIMARY CARE PHYSICIAN: Dr. Jeremias Barrientos. REQUESTING PHYSICIAN: Dr. Brent Diaz. REASON FOR CONSULTATION: Medical management postoperative for anterior cervical diskectomy and fusio n. HISTORY OF PRESENT ILLNESS: Mr. Bowen is a pleasant 73-year-old gentleman with a history of asthmati c bronchitis, hypertension, hypothyroidism, left ear deafness, degenerative joint disease and degener ative cervical disk disease, hypothyroidism, onychomycosis, who was admitted postop day 0 today statu s post anterior cervical diskectomy and fusion. No noted intraoperative complications. Postoperatively, the patient was feeling sleepy, but otherwis e pain was fairly well controlled and neck is somewhat sore. No fevers or chills. No nausea and vom iting. No diarrhea, no GI bleeding. Questions were answered and information was verified. PAST MEDICAL HISTORY: 1. Asthmatic bronchitis. 2. Hypertension. 3. Hypothyroidism. 4. Left ear deafness. 5. Degenerative joint disease. 6. Degenerative cervical disk disease. 7. Hypothyroidism. PAST SURGICAL HISTORY: Includes, 1. Bilateral intraocular lenses. 2. Nasal septal repair. 3. Appendectomy. 4. CABG in 12/[address] Armstrong. 5. PTCA in 11/2017. 6. Right TKA 2014. 7. Right cochlear implant in 2012 and right rotator cuff repair in 2002. HOME MEDICATIONS: 1. Symbicort 160/4.5 one puff b.i.d. 2. Vitamin D 2000 units daily. 3. Hydrocodone/APAP 5/325 1-1/2 tabs q.4-6h. as needed. 4. Iron 65 mg x2 tablets daily. 5. Levothyroxine 150 mcg daily. 6. Flonase 2 sprays each nostril daily. 7. Metoprolol 25 mg p.o. b.i.d. 8. Zocor 10 mg p.o. at bedtime. 9. Multivitamin daily. 10. Levocetirizine 5 mg p.o. q.a.m. 11. Neurontin 100 mg p.o. p.r.n. pain. 12. Lisinopril/HCTZ 20/25 daily. ALLERGIES: CODEINE and SULFA. FAMILY HISTORY: Negative for clotting or bleeding disorder. No immune dysfunction. SOCIAL HISTORY: Negative for habits x3, quit smoking in 2016, did smoke 2-3 packs per day for many y ears, then decreased to 1-2 packs for several years before stopping completely. No IV drug use. He is . His does accompany him. He does drink alcohol on a regular basis. REVIEW OF SYSTEMS: All systems reviewed and negative except stated as PPI. PHYSICAL EXAMINATION: VITAL SIGNS: Temperature current 97.4, pulse 58, blood pressure 165/77, respiratory rate 16, satting 93% on room air. GENERAL: He is awake, alert, oriented x3, well-developed, well-nourished, obese white male, appears to be in no acute distress. HEENT: Normocephalic, atraumatic. Pupils equal, round, react to light bilaterally. Mucous membrane s are moist. Visibly no thrush cochlear implant present in the right posterior cranium. NECK: Supple. He has an anterior postop dressing was not removed. He has no stridor, no JVD, janny l carotid upstrokes without bruits. LUNGS: Clear to auscultation bilaterally. No prolonged expiratory phase. No wheezes, no rales, no rhonchi with good air movement. No crackles. CARDIOVASCULAR: Normal S1 and S2. No S3 or S4. No audible murmurs. ABDOMEN: Soft, is nontender, nondistended, no mass or organomegaly. EXTREMITIES: No cyanosis, clubbing with trace pedal edema. SKIN: Warm and well perfused. There are no rashes or lesions. MUSCULOSKELETAL: Normal to inspection. Large joints appear normal. There is no evidence of inflamm ation or palpable effusions. NEUROLOGIC: Cranial nerves II-XII are grossly intact without any focal neurologic deficits. He has 5/5 strength in all 4 extremities. He has normal speech pattern. LABORATORY DATA: Preoperative labs, sodium 141, potassium 4.4, chloride 108, bicarb 22, BUN 21, crea tinine 1.06, calcium 9.4, glucose 99. Sed rate was 13. INR 1.4. CBC showed a white count of 7.6, hemoglobin 13.5, hematocrit of 38.7, zain telet count 109,000. ASSESSMENT AND PLAN: 1. Hypertension, essential. Continue home medications. 2. Hypothyroidism. Continue levothyroxine. 3. Left ear deafness with cochlear implant. 4. Asthmatic bronchitis, on Symbicort and p.r.n. albuterol. 5. Seasonal allergies, on Xyzal Plus, Flonase will continue. 6. Status post anterior cervical diskectomy and fusion. Routine perioperative care per the neurosur gical team. Pain management per their service. We will follow along. Thank you very much for this consult. I will follow along with you.
[2018-06-14] MEDS ORDERED: Ferrous Sulfate 325 MG TAB PO SCH (17:00)
[2018-06-14] MEDS ORDERED: Mometasone/Formoterol 120 PUFF INHALER INH SCH (18:30)
[2018-06-14] MEDS ORDERED: Simvastatin 5 MG TAB PO SCH (21:00)
[2018-06-14] MEDS ORDERED: Multivitamin W/ Minerals 1 TAB PO SCH (21:00)
[2018-06-14] MEDS ORDERED: Fluticasone Propionate Nasal Spray 16 gm Bottle NASAL SCH ×2 (21:00)
[2018-06-14] MEDS ORDERED: Gabapentin 100 MG CAP PO PRN (21:11)
[2018-06-14] MEDS: Metoprolol Tartrate 25 MG TAB PO SCH (23:08)
[2018-06-14] MEDS: Sodium Chloride 0.9% 1,000 ML IV SCH (23:11)
[2018-06-15] MEDS ORDERED: Levothyroxine 150 MCG TAB PO SCH (06:00)
[2018-06-15 07:53] VITALS: BP 161/86; TEMP 98.4
[2018-06-15] MEDS: Metoprolol Tartrate 25 MG TAB PO SCH (08:22)
[2018-06-15] MEDS ORDERED: Furosemide 40 MG TAB PO SCH (09:00)
[2018-06-15] MEDS ORDERED: Loratadine 10 MG TAB PO SCH (09:00)
--- NOTE | 2018-06-15 10:15 | PDOC.PN ---
- Subjective Encounter Start Date: 06/15/18 Encounter Start Time: 08:45 pain controlled. slighrt dyphagia, no aspiration. no f/C, no nV/D/c. no acute events overnight all systems reviewed and neg x as above - Objective MAR Reviewed: Yes Vital Signs & Weight: Vital Signs (12 hours) Temp Pulse Resp BP Pulse Ox 06/15/18 07:05 98.4 F 54 L 12 161/86 H 92 L 06/15/18 04:23 98.1 F 71 18 162/79 H 95 06/15/18 00:27 97.9 F 75 18 145/46 H 91 L Weight Weight 238 lb I&O: 06/14/18 06/15/18 06/16/18 06:59 06:59 06:59 Intake Total 2205 Output Total 1240 10 Balance 965 -10 Phys Exam - Physical Examination Constitutional: NAD HEENT: PERRLA, moist MMs, sclera anicteric, oral pharynx no lesions Neck: no nodes, no JVD, supple, full ROM Respiratory: no wheezing, no rales, no rhonchi, clear to auscultation bilateral Cardiovascular: RRR, no significant murmur, no rub Gastrointestinal: soft, non-tender, no distention, positive bowel sounds Musculoskeletal: no edema, pulses present Neurological: non-focal, normal sensation, moves all 4 limbs Lymphatic: no nodes Psychiatric: normal affect, A&O x 3 Skin: no rash, normal turgor, cap refill <2 seconds Deviation from normal: dressing to anterior neck C/D/I Dx/Plan (1) CAD (coronary artery disease) Code(s): I25.10 - ATHSCL HEART DISEASE OF [place] CORONARY ARTERY W/O ANG PCTRS Status: Chronic (2) CKD (chronic kidney disease) stage 2, GFR 60-89 ml/min Code(s): N18.2 - CHRONIC KIDNEY DISEASE, STAGE 2 (MILD) Status: Chronic (3) Deafness, bilateral Code(s): H91.93 - UNSPECIFIED HEARING LOSS, BILATERAL Status: Chronic (4) Dyslipidemia Code(s): E78.5 - HYPERLIPIDEMIA, UNSPECIFIED Status: Chronic (5) H/O: CVA (cerebrovascular accident) Code(s): Z86.73 - PRSNL HX OF TIA (TIA), AND CEREB INFRC W/O RESID DEFICITS Status: Chronic (6) Hypertension Code(s): I10 - ESSENTIAL (PRIMARY) HYPERTENSION Status: Chronic (7) Hypothyroidism Code(s): E03.9 - HYPOTHYROIDISM, UNSPECIFIED Status: Chronic (8) Obesity (BMI 30-39.9) Code(s): E66.9 - OBESITY, UNSPECIFIED Status: Chronic - Plan cont current plan of care * . medically stable, discharging per neurosurgical team, follow up with PCP
--- NOTE | 2018-06-15 12:45 | DIS ---
ATTENDING PHYSICIAN: Dr. Brent Diaz DATE OF ADMISSION: 06/14/2018 DATE OF DISCHARGE: 06/15/2018 HOSPITAL COURSE: The patient is a 73-year-old male status post C4-C7 ACDF, postoperative day #1. Overnight, the patient did very well. His pain was well controlled with p.o. medications, he was tolerating a regular diet, and voiding appropriately. He has been up ambulatory throughout e department without difficulty or assistance. His incision and dressing are dry and soft. He has gamez d no other postoperative complications. At this point, I feel that it is appropriate to discharge [facility] patient home and patient is amenable to this plan. We will hold his aspirin and meloxicam for the next 2 weeks. He has been prescribed Burton, Zanaflex, and Keflex at discharge. I have discussed [facility] e care precautions and follow up with us in 2 weeks. Please reach out to Neurosurgery for additional questions or concerns.
== END 2018-06-15 10:02 | disposition home or self-care (01) | DRG 473 ==
LOC: SURG A 06-14 05:42
PROVIDERS: ADMIT Neurological Surgery; ATTEND Neurological Surgery
PROC: 0RG20J0 Fusion of 2 or more Cervical Vertebral Joints with Synthetic Substitute, Anterior Approach, Anterior Column, Open Approach (ICD-10-PCS; principal; 2018-06-14)
PROC: 0RB30ZZ Excision of Cervical Vertebral Disc, Open Approach (ICD-10-PCS; 2018-06-14)
DX: M47.812 Spondylosis without myelopathy or radiculopathy, cervical region (principal); M48.02 Spinal stenosis, cervical region; J44.9 Chronic obstructive pulmonary disease, unspecified; I25.10 Atherosclerotic heart disease of native coronary artery without angina pectoris; E03.9 Hypothyroidism, unspecified; H91.92 Unspecified hearing loss, left ear; I12.9 Hypertensive chronic kidney disease with stage 1 through stage 4 chronic kidney disease, or unspecified chronic kidney disease; N18.2 Chronic kidney disease, stage 2 (mild); E66.9 Obesity, unspecified; Z68.36 Body mass index [BMI] 36.0-36.9, adult; Z86.73 Personal history of transient ischemic attack (TIA), and cerebral infarction without residual deficits; Z87.891 Personal history of nicotine dependence; Z88.2 Allergy status to sulfonamides; Z88.5 Allergy status to narcotic agent; Z95.1 Presence of aortocoronary bypass graft; Z96.651 Presence of right artificial knee joint
CPT/HCPCS: 76001; 80048; 85027; 93005; 93010; A4216; C1713; J0131; J2001; J2270; J2405; J2550; J2704; J3010; J3490

== ENCOUNTER 2018-06-28 11:14 | Outpatient (CLI) | payer MEDICARE ==
--- NOTE | 2018-06-28 13:28 | RAD ---
CERVICAL SPINE FOUR VIEWS: INDICATIONS: Follow-up surgery. COMPARISON: CT myelogram, dated 11/01/2017. FINDINGS: Since the comparison examination, there has been interval performance of an ACDF, spanning C4 through C7. There is stable mild anterior translation of C3 on C4. There is multilevel facet osteoarthrosi s change, which is similar appearing. Mild prevertebral soft tissue swelling is seen overlying the A CDF plate, which may be post surgical in nature. There are vascular calcifications involving the car otid bulbs bilaterally. There is partial visualization of sternotomy changes within the upper medias tinum. The lung apices are clear. The lateral masses are symmetric. IMPRESSION: 1. Postoperative cervical spine. 2. Stable spondylosis of the cervical spine. 3. Stable mild anterior translation of C4 on C5 and of C3 on C4. POS: [facility]
== END 2018-06-28 11:15 | disposition home or self-care (01) ==
LOC: TBSIIMAG 11:14
PROVIDERS: ATTEND Physician Assistant
DX: M54.2 Cervicalgia (principal); M47.892 Other spondylosis, cervical region; M43.8X2 Other specified deforming dorsopathies, cervical region; Z98.1 Arthrodesis status
CPT/HCPCS: 72040

== ENCOUNTER 2018-08-09 14:07 | Outpatient (CLI) | payer MEDICARE ==
--- NOTE | 2018-08-09 17:36 | RAD ---
CERVICAL SPINE AP LATERAL STANDARD: 08/09/18 HISTORY: M50.30 - cervical region disc degeneration. COMPARISON: Radiograph 06/28/18. FINDINGS: There is similar appearance to the ACF hardware from C4-C7. Evaluation, however, is limited due to ky phosis. Mild narrowing of the C3-4 disc space. No acute fracture or malalignment. No evidence for hardware fa ilure. Open mouth odontoid views demonstrates narrowing of the left C1-2 articulation. Moderate vascular calcifications of the left carotid bulb. Cochlear implants in place. IMPRESSION: Unchanged postoperative appearance of the spine. POS: [facility]
== END 2018-08-09 14:08 | disposition home or self-care (01) ==
LOC: TBSIIMAG 14:07
PROVIDERS: ATTEND Neurological Surgery
DX: M50.30 Other cervical disc degeneration, unspecified cervical region (principal); Z98.1 Arthrodesis status
CPT/HCPCS: 72040

== ENCOUNTER 2018-08-17 13:35 | Outpatient (CLI) | payer MEDICARE ==
--- NOTE | 2018-08-17 15:32 | RAD ---
CHEST TWO VIEWS: HISTORY: Chest pain on the right side of the chest. COMPARISON: 12/08/2017 FINDINGS: Two views of the chest show a normal sized cardiomediastinal silhouette. The patient is status post sternotomy. There is no evidence of consolidation, mass, or pleural effusion. IMPRESSION: No evidence of acute cardiopulmonary disease. POS: [facility]
== END 2018-08-17 13:36 | disposition home or self-care (01) ==
LOC: BICRAD 13:35
PROVIDERS: ATTEND Family Medicine
DX: R07.9 Chest pain, unspecified (principal)
CPT/HCPCS: 71046

== ENCOUNTER 2018-11-08 12:56 | Outpatient (CLI) | payer MEDICARE ==
--- NOTE | 2018-11-08 14:51 | RAD ---
CERVICAL SPINE FOUR VIEWS: History: Post op follow up. Comparison: 08-09-18 FINDINGS: Anterior plate and screws again seen transfixing C4, C5, C6 and C7. Anterior wedge deformities involv ing C5, C6, and C7 appear stable. There is slight anterolisthesis at C4-5 which is unchanged. Disc na rrowing at C5-6 and C6-7 appears stable. IMPRESSION: Stable post-operative findings when compared to prior study. POS: [facility]
== END 2018-11-08 12:57 | disposition home or self-care (01) ==
LOC: TBSIIMAG 12:56
PROVIDERS: ATTEND Neurological Surgery
DX: M54.12 Radiculopathy, cervical region (principal); Z98.890 Other specified postprocedural states
CPT/HCPCS: 72040

== ENCOUNTER 2018-12-25 11:46 | Day surgery (SDC) | payer MEDICARE ==
[2018-12-24 10:59] VITALS: BMI 35.9
[2018-12-25] MEDS ORDERED: Bupivacaine HCl 0.5%/Epinephrine 1:200,000/PF 30 ml Vial ONE (13:55)
[2018-12-25] MEDS ORDERED: PROPOFOL 200 MG/20 ML VIAL ONE (14:16)
[2018-12-25] MEDS ORDERED: Lidocaine 1% PF 5 ML VIAL ONE (14:16)
[2018-12-25] MEDS ORDERED: PROPOFOL 40 ML ONE (15:05)
[2018-12-25] MEDS ORDERED: PROPOFOL 20 ML ONE (15:51)
[2018-12-25] MEDS ORDERED: Ketorolac Tromethamine 30 MG/ML VIAL ONE (16:21)
--- NOTE | 2018-12-25 16:56 | RAD ---
FLUOROSCOPIC IMAGES THORACIC SPINE: 12/25/18 HISTORY: Pain pump insertion. FINDINGS/IMPRESSION: Two AP fluoroscopic images of the thoracic spine are submitted. Initial image demonstrates metallic i nstrument overlying the spine with significant motion limiting evaluation. Second provided image demo nstrates evidence of median sternotomy wires and placement of dorsal column stimulator leads overlyin g the thoracic spine. Correlation with intraoperative findings is recommended. POS: [facility]
--- NOTE | 2018-12-25 17:58 | OP ---
DATE OF PROCEDURE: 12/25/2018 PREOPERATIVE DIAGNOSES: 1. Postlaminectomy syndrome. 2. Chronic pain syndrome. 3. Lumbar radiculopathy. POSTOPERATIVE DIAGNOSES: 1. Postlaminectomy syndrome. 2. Chronic pain syndrome. 3. Lumbar radiculopathy. PROCEDURES PERFORMED: 1. Spinal cord stimulator generator implant x1. 2. Spinal cord stimulator lead implant x2. 3. Fluoroscopy. 4. Programming. ESTIMATED BLOOD LOSS: 5 mL. SUMMARY OF PROCEDURE: The patient was taken to the operating room and placed prone on the procedure room table. A time-out was performed. The back was prepped with ChloraPrep, and sterile drapes were applied. Using fluoroscopy, we identified the level of T12-L1. We anesthetized the skin and made a vertical incision and blunt dissected it down to fascia. We inserted a 14-gauge supplied Tuohy needle in a paramedian technique towards the ligament of T12-L1. Once engaged in the ligament, we used loss of resistance to air to achieve an access to the epidural space. There was negative aspiration for heme or CSF. An 8-contact lead was threaded up the midline dorsal epidural space to the bottom of T7. Second lead was placed in the exact same fashion on the contralateral side using an another needle on the contralateral side. Both leads were advanced under continuous fluoro up to the bottom of T7. Stimulation was then performed with the patient awake and he noted stimulation in all pain areas. The needles were then removed taking care not to remove the lead. Anchors were applied over the leads. These were clicked down to secure to the leads. Silk suture x2 was used for each anchor to fix these to fascia. A tension relief loop was made and tucked under the skin. A battery pocket was made by anesthetizing the skin with 0.5% Marcaine with epinephrine in the left buttock. A horizontal incision was made and blunt dissected down to Van's fascia, this was dissected inferiorly and superiorly to make a pocket. Tunneling device was used to make a tunnel between the 2 pockets. The leads were advanced through this tunneling device to the battery pocket. They were connected to the battery and torqued down. The impedances were checked, which were all good. The battery was placed inside the pocket easily. The fascial layer was then approximated using 2-0 Vicryl suture in simple interrupted fashion in 2 layers. A 3-0 Monocryl was used for subcuticular stitch, and Dermabond was used as an occlusive dressing. The patient tolerated the procedure well without any apparent complications noted at this time. Job ID: [id number]
== END 2018-12-25 18:14 | disposition home or self-care (01) ==
LOC: SDC 11:46
PROVIDERS: ATTEND Specialist
PROC: 0JH70BZ Insertion of Single Array Stimulator Generator into Back Subcutaneous Tissue and Fascia, Open Approach (ICD-10-PCS; principal; 2018-12-25)
PROC: 00HU3MZ Insertion of Neurostimulator Lead into Spinal Canal, Percutaneous Approach (ICD-10-PCS; 2018-12-25)
DX: G89.4 Chronic pain syndrome (principal); M96.1 Postlaminectomy syndrome, not elsewhere classified; M54.16 Radiculopathy, lumbar region; I25.10 Atherosclerotic heart disease of native coronary artery without angina pectoris; E78.00 Pure hypercholesterolemia, unspecified; E03.9 Hypothyroidism, unspecified; J44.9 Chronic obstructive pulmonary disease, unspecified; E66.9 Obesity, unspecified; Z68.35 Body mass index [BMI] 35.0-35.9, adult; N52.9 Male erectile dysfunction, unspecified; M19.90 Unspecified osteoarthritis, unspecified site; G47.30 Sleep apnea, unspecified; Z95.1 Presence of aortocoronary bypass graft; Z86.73 Personal history of transient ischemic attack (TIA), and cerebral infarction without residual deficits; Z87.891 Personal history of nicotine dependence; Z99.89 Dependence on other enabling machines and devices; Z88.5 Allergy status to narcotic agent; Z88.2 Allergy status to sulfonamides; Z79.1 Long term (current) use of non-steroidal anti-inflammatories (NSAID); Z79.51 Long term (current) use of inhaled steroids; Z79.82 Long term (current) use of aspirin; Z79.899 Other long term (current) drug therapy
CPT/HCPCS: 72020; 76000; C1767; J0131; J0670; J1885; J2001; J2704

== ENCOUNTER 2019-10-08 15:26 | Outpatient (CLI) | payer MEDICARE ==
--- NOTE | 2019-10-08 15:54 | CT ---
CT pulmonary lung scan without IV contrast INDICATION: Lung cancer screening protocol; personal history of tobacco use COMPARISON: Prior CT pulmonary lung scan dated October 04, 2017 FINDINGS: LUNGS: Nodules\mass: No suspicious pulmonary nodules are seen within the right upper lobe. There is an area of subsegmental volume loss within the lateral right middle lobe. No suspicious pulmonary nodules are seen within the right middle lobe. There are calcified pleural plaques involving the right hemidi aphragm. There is a calcified granuloma within the superior segment of the right lower lobe. No suspicious pulmonary nodule seen within the left upper lobe or lingula. No suspicious pulmonary nodul e is seen within the left lower lobe. Visualized airway appears within normal limits. Emphysema: There is moderate scattered centrilobular emphysema Additional findings: There are coronary artery and thoracic aortic calcifications. 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 Mediastinum: No lymphadenopathy. Upper abdomen: No abnormality. Osseous structures: No acute abnormality.. There is scattered degenerative and osteoarthritic change present. IMPRESSION: Lung-RADS Category 1: Negative- Continue annual screening with LDCT in 12 months. Category S: Calcified pleural plaques of the right hemidiaphragm are stable. Moderate emphysema. Dre nary artery and thoracic aortic calcifications. Category C: Not applicable.
== END 2019-10-08 15:27 | disposition home or self-care (01) ==
LOC: CT 15:26
PROVIDERS: ATTEND Family Medicine
DX: Z87.891 Personal history of nicotine dependence (principal); J43.9 Emphysema, unspecified; I25.10 Atherosclerotic heart disease of native coronary artery without angina pectoris; I70.0 Atherosclerosis of aorta; J92.9 Pleural plaque without asbestos
CPT/HCPCS: G0297

== ENCOUNTER 2019-10-11 19:12 | Emergency (ER) | payer MEDICARE ==
[2019-10-11] MEDS ORDERED: Ketorolac Tromethamine 60 MG/2 ML VIAL ONE (21:57)
[2019-10-11] MEDS ORDERED: Diazepam 5 MG TAB ONE (21:57)
[2019-10-11] MEDS ORDERED: Dexamethasone 4 mg/ml Vial ONE (21:57)
--- NOTE | 2019-10-11 22:54 | CT ---
CT thoracic spine noncontrast HISTORY: Back pain. FINDINGS: Vertebral body heights and alignment are maintained. There is bulky osteophytosis throughou t the vertebral bodies and the facets and ossification of the anterior longitudinal ligament of the thoracic spine, consistent with diffuse idiopathic skeletal hyperostosis. No acute fracture or dislocation are apparent. Multilevel mild central canal and foraminal stenoses. Dorsal column stimulator leads are present, ascending to the mid thoracic spine level. Postoperative changes of the lower cervical spine partially visualized. There is calcification within the arterial structures. Dystrophic calcification at the pleura over the right hemidiaphragm. IMPRESSION: No acute osseous abnormalities of the thoracic spine are demonstrated. There are prominen t degenerative changes and other chronic-type findings as detailed above. Atherosclerosis.
--- NOTE | 2019-10-11 22:57 | CT ---
CT lumbar spine noncontrast HISTORY: Low back pain. COMPARISON: 08/08/2014. FINDINGS: Vertebral body heights and alignment are maintained. No acute fracture or dislocation. Bulky osteophytosis throughout the vertebral bodies and facets. Central canal stenosis is most pronou nced at the L2-3, L3-4, and L4-5 levels. Foraminal stenoses most severe at the L5-S1 level. Dorsal column stimulator leads are partially visualized. There is prominent calcification throughout the arterial structures. IMPRESSION: No acute osseous abnormalities are demonstrated. Prominent multilevel degenerative changes with stenoses most severe at each L5-S1 neural foramen. Cli nical correlation regarding each L5 dermatome is required. Atherosclerosis.
== END 2019-10-11 23:13 | disposition home or self-care (01) ==
LOC: ERS 19:12
DX: M51.37 Other intervertebral disc degeneration, lumbosacral region (principal); I10 Essential (primary) hypertension; J45.909 Unspecified asthma, uncomplicated; E78.5 Hyperlipidemia, unspecified; Z86.73 Personal history of transient ischemic attack (TIA), and cerebral infarction without residual deficits; Z87.891 Personal history of nicotine dependence; Z79.899 Other long term (current) drug therapy
CPT/HCPCS: 72128; 72131; 96372; J1100; J1885

== ENCOUNTER 2020-01-03 07:57 | Day surgery (SDC) | payer MEDICARE ==
[2019-12-30 11:44] VITALS: BMI 39.5
[~2020-01-03 07:57] MED LIST: FLU VACC TS2019-20(65YR UP)/PF 180 MCG/0.5 ML SYRINGE IM ONE
[2020-01-03 09:17] VITALS: BP 156/83; TEMP 98.3
--- NOTE | 2020-01-03 10:54 | RAD ---
LUMBAR MYELOGRAM: HISTORY: Lumbar radiculopathy. Low back pain. EXPOSURE: 1.1 minute, 1380.5 mGy*^m2. FINDINGS: Initial 3-view lumbar spine desktop technician radiograph demonstrates a dorsal column stimulator. There are 5 lum bar-type vertebrae. Lumbar spine vertebral body height is maintained. No fracture. Straightening of lumbar lordosis is noted. There is vacuum disc phenomenon at L4-L5. Multilevel anterior osteophyte fo rmation is noted. There is atherosclerosis of the nonaneurysmal abdominal aorta. Successful lumbar puncture at the L2-L3 level. A total of 10 cc of Isovue-M 200 contrast was administ ered intrathecally. No immediate or postprocedure complications. TECHNIQUE: Consent was obtained to perform a lumbar puncture for lumbar myelogram. The patient's back was evalua juvenal. The L2-L3 level was deemed appropriate. Skin was prepped and draped in a sterile fashion. 1% lidocaine, buffered with sodium bicarbonate was used for local anesthesia. Under fluoroscopic guidanc e, a 22-gauge spinal needle was advanced into the CSF space. Prompt flow of clear CSF into the hub of the needle. Via a short tubing catheter, a total of 10 cc of Isovue-M 200 contrast was administere d intrathecally. Patient tolerated the procedure well. No immediate or postprocedural complications. IMPRESSION: Successful lumbar puncture for a lumbar myelogram. Please refer to separate post myelogram CT report for further detail. Transcribed Date/Time: 01/03/2020 11:51 AM
--- NOTE | 2020-01-03 11:26 | CT ---
POST MYELOGRAM LUMBAR SPINE CT: COMPARISON: 10/11/2019. HISTORY: Low back pain, lumbar radiculopathy. FINDINGS: Visualized solid organs are unremarkable. Symmetric attenuation of the visualized musculature. Athero sclerosis of a nonaneurysmal aorta. Five lumbar-type vertebrae. Stable osteophyte formation. No evidence of vertebral body fracture. No e vidence of loss of vertebral body height. Stable straightening of lumbar lordosis. Redemonstration of vacuum disc phenomenon at L2-L3, L4-L5. Incidental dorsal column stimulator is noted. Stimulator enters the central spinal canal at the T12-L 1 level. Conus medullaris terminates at the mid L1 level. No spondylolisthesis. No spondylolysis T12-L1: No significant central canal stenosis or significant neural foraminal narrowing. L1-L2: Moderate loss of disc space height. Broad-based disc bulge with minimal encroachment upon the ventral thecal sac. No significant central canal stenosis. Bilaterally, neural foramina are patent. L2-L3: Vacuum disc phenomenon with moderate loss of disc space height. Broad-based disc bulge, ligame ntum flavum thickening and facet hypertrophy result in mild central canal stenosis. Moderate bilateral foraminal narrowing. L3-L4: Broad-based disc bulge, minimally abuts the ventral thecal sac. Mild central canal stenosis. M oderate bilateral foraminal narrowing. L4-L5: Vacuum disc phenomenon. Broad-based disc-osteophyte complex abuts the thecal sac. Mild central canal stenosis. There is encroachment upon both subarticular zones. No significant obscuration of either traversing L5 nerve root. Moderate to severe bilateral neural foraminal narrowing. L5-S1: Severe loss of disc space height. Broad-based disc bulge minimally contacts the thecal sac. Th ere is minimal encroachment upon bilateral subarticular zones. There may be some mass effect without obscuration of either traversing S1 nerve root. Moderate to severe right and severe left fora byron narrowing. IMPRESSION: 1. No fracture. 2. Stable straightening of the lumbar lordosis. 3. Multilevel vacuum disc phenomenon. 4. No evidence of high-grade central canal stenosis. Narrowing of bilateral subarticular zones at L4- L5 and L5-S1. 5. Moderate to severe bilateral foraminal narrowing at L3-L4, moderate to severe bilateral foraminal narrowing at L4-L5, moderate to severe right foraminal narrowing at L5-S1 and severe left foraminal narrowing at L5-S1. Transcribed Date/Time: 01/03/2020 11:41 AM
== END 2020-01-03 11:00 | disposition home or self-care (01) ==
LOC: RAD 07:57
PROVIDERS: ATTEND Neurological Surgery
PROC: B02B1ZZ Computerized Tomography (CT Scan) of Spinal Cord using Low Osmolar Contrast (ICD-10-PCS; principal; 2020-01-03)
DX: M51.16 Intervertebral disc disorders with radiculopathy, lumbar region (principal); M48.061 Spinal stenosis, lumbar region without neurogenic claudication; E03.9 Hypothyroidism, unspecified; E11.9 Type 2 diabetes mellitus without complications; J44.9 Chronic obstructive pulmonary disease, unspecified; E78.00 Pure hypercholesterolemia, unspecified; I10 Essential (primary) hypertension; I25.2 Old myocardial infarction; I25.10 Atherosclerotic heart disease of native coronary artery without angina pectoris; K21.9 Gastro-esophageal reflux disease without esophagitis; G47.30 Sleep apnea, unspecified; D64.9 Anemia, unspecified; E66.01 Morbid (severe) obesity due to excess calories; Z68.39 Body mass index [BMI] 39.0-39.9, adult; Z86.73 Personal history of transient ischemic attack (TIA), and cerebral infarction without residual deficits; Z87.891 Personal history of nicotine dependence; Z79.1 Long term (current) use of non-steroidal anti-inflammatories (NSAID); Z79.82 Long term (current) use of aspirin; Z79.899 Other long term (current) drug therapy; Z88.2 Allergy status to sulfonamides; Z88.5 Allergy status to narcotic agent; Z95.1 Presence of aortocoronary bypass graft; Z98.1 Arthrodesis status; Z98.84 Bariatric surgery status; Z99.89 Dependence on other enabling machines and devices
CPT/HCPCS: 62304; 72131

== ENCOUNTER 2020-07-27 18:00 | Outpatient (CLI) | payer MEDICARE | END 2020-07-27 18:01 | disposition home or self-care (01) | LOC: SLEEPLAB 18:00 | PROVIDERS: ATTEND Internal Medicine Critical Care Medicine | DX: G47.33 Obstructive sleep apnea (adult) (pediatric) (principal); R06.83 Snoring; G47.00 Insomnia, unspecified; R09.02 Hypoxemia | CPT/HCPCS: 95806 ==

== ENCOUNTER 2020-10-22 19:30 | Outpatient (CLI) | payer MEDICARE | END 2020-10-22 19:31 | disposition home or self-care (01) | LOC: SLEEPLAB 19:30 | PROVIDERS: ATTEND Internal Medicine Critical Care Medicine | DX: G47.33 Obstructive sleep apnea (adult) (pediatric) (principal) | CPT/HCPCS: 95811 ==

== ENCOUNTER 2021-10-11 11:52 | Outpatient (CLI) | payer MEDICARE ==
[2021-10-11 13:08] LABS: Hemoglobin 12.5 g/dL (13.5-17.5); Mean Corpuscular HGB CONC 33.2 g/dL (32.0-36.0); Mean Corpuscular Hemoglobin 30.9 pg (27.0-33.0); Mean Corpuscular Volume 93.1 fl (81.2-95.1); Mean Platelet Volume 9.8 fl (7.4-10.4); Platelet Count 163 10x3/uL (150-450); RBC Distribution Width 13.2 % (11.5-14.5); Red Blood Cell (RBC) Count 4.05 10x6/uL (4.32-5.72); White Blood Cell (WBC) Count 6.1 10x3/uL (3.5-10.5)
[2021-10-11 13:47] LABS: Anion Gap 11 mmol/L (10-20); BUN (Urea Nitrogen) 18 mg/dL (8.4-25.7); Calc. Creatinine Clearance 0 mL/min (70-130); Calcium 8.5 mg/dL (7.8-10.44); Carbon Dioxide 24 mmol/L (23-31); Chloride 109 mmol/L (98-107); Glucose 112 mg/dL (83-110); Potassium 4.4 mmol/L (3.5-5.1); Sodium 140 mmol/L (136-145)
[2021-10-11 14:49] LABS: Uric Acid 6.7 mg/dL (3.5-7.2)
[2021-10-12 11:02] LABS: SARS-CoV-2 PCR by NAA Not Detected (NotDetected)
== END 2021-10-11 11:53 | disposition home or self-care (01) ==
LOC: LABBT 11:52
PROVIDERS: ATTEND Specialist
DX: Z01.818 Encounter for other preprocedural examination (principal); Z20.822 Contact with and (suspected) exposure to COVID-19; M79.671 Pain in right foot; M19.072 Primary osteoarthritis, left ankle and foot; M77.32 Calcaneal spur, left foot
CPT/HCPCS: 73630; 80048; 84550; 85027; 93005; U0003; U0005; 93010

== ENCOUNTER 2021-10-11 14:44 | Outpatient (CLI) | payer MEDICARE | END 2021-10-11 14:45 | disposition home or self-care (01) | LOC: BICRAD 14:44 | PROVIDERS: ATTEND Podiatrist | DX: M79.671 Pain in right foot (principal); M19.072 Primary osteoarthritis, left ankle and foot; M77.32 Calcaneal spur, left foot ==

== ENCOUNTER 2021-10-14 10:06 | Day surgery (SDC) | payer MEDICARE ==
[2021-10-13 11:14] VITALS: BMI 36.5
[2021-10-14] MEDS ORDERED: ceFAZolin 2 GM/DEX 5% 100 ML BAG ONE (11:28)
[2021-10-14] MEDS ORDERED: Bupivacaine PF 0.5% 30 ML VIAL ONE (11:43)
[2021-10-14] MEDS ORDERED: EPINEPHrine 1 MG/ML AMP ONE (11:43)
[2021-10-14] MEDS ORDERED: Midazolam HCl 2 mg/2 ml Vial ONE (11:48)
[2021-10-14] MEDS ORDERED: Fentanyl 100 MCG/2 ML VIAL ONE (11:48)
[2021-10-14] MEDS ORDERED: Propofol 500 MG/50 ML VIAL ONE (11:52)
[2021-10-14] MEDS ORDERED: PROPOFOL 200 MG/20 ML VIAL ONE (12:07)
[2021-10-14] MEDS ORDERED: Ondansetron PF 4 MG/2 ML Vial ONE (13:40)
[2021-10-14] MEDS ORDERED: Ondansetron ODT 4 MG TAB ONE (13:41)
== END 2021-10-14 15:00 | disposition home or self-care (01) ==
LOC: SDC 10:06
PROVIDERS: ATTEND Specialist
PROC: 0JPT0MZ Removal of Stimulator Generator from Trunk Subcutaneous Tissue and Fascia, Open Approach (ICD-10-PCS; principal; 2021-10-14)
PROC: 0JH70DZ Insertion of Multiple Array Stimulator Generator into Back Subcutaneous Tissue and Fascia, Open Approach (ICD-10-PCS; 2021-10-14)
DX: M96.1 Postlaminectomy syndrome, not elsewhere classified (principal); G89.4 Chronic pain syndrome; M47.26 Other spondylosis with radiculopathy, lumbar region; M50.120 Mid-cervical disc disorder, unspecified level; M48.15 Ankylosing hyperostosis [Forestier], thoracolumbar region; M51.16 Intervertebral disc disorders with radiculopathy, lumbar region; M47.27 Other spondylosis with radiculopathy, lumbosacral region; M51.17 Intervertebral disc disorders with radiculopathy, lumbosacral region; M46.1 Sacroiliitis, not elsewhere classified; E78.00 Pure hypercholesterolemia, unspecified; I10 Essential (primary) hypertension; J44.9 Chronic obstructive pulmonary disease, unspecified; E03.9 Hypothyroidism, unspecified; N52.9 Male erectile dysfunction, unspecified; M19.90 Unspecified osteoarthritis, unspecified site; G47.30 Sleep apnea, unspecified; E11.9 Type 2 diabetes mellitus without complications; H91.92 Unspecified hearing loss, left ear; E66.9 Obesity, unspecified; Z68.36 Body mass index [BMI] 36.0-36.9, adult; Z86.73 Personal history of transient ischemic attack (TIA), and cerebral infarction without residual deficits; Z87.891 Personal history of nicotine dependence; Z79.1 Long term (current) use of non-steroidal anti-inflammatories (NSAID); Z79.82 Long term (current) use of aspirin; Z79.899 Other long term (current) drug therapy; Z88.2 Allergy status to sulfonamides; Z88.5 Allergy status to narcotic agent; Z95.1 Presence of aortocoronary bypass graft; Z96.21 Cochlear implant status
CPT/HCPCS: 63685; C1713; C1767; C1776; J0171; J2250; J2405; J2704; J3010; J3370; Q0162; S0020

== ENCOUNTER 2022-03-28 09:16 | Outpatient (CLI) | payer MEDICARE ==
[2022-03-28] MEDS ORDERED: Iopamidol 370 76% 100 ML VIAL ONE (14:55)
== END 2022-03-28 09:17 | disposition home or self-care (01) ==
LOC: CT 09:16
PROVIDERS: ATTEND Internal Medicine Cardiovascular Disease
DX: I65.23 Occlusion and stenosis of bilateral carotid arteries (principal); I70.90 Unspecified atherosclerosis
CPT/HCPCS: 70498; 82565; Q9967

== ENCOUNTER 2022-11-15 10:55 | Outpatient (CLI) | payer MEDICARE | END 2022-11-15 10:56 | disposition home or self-care (01) | LOC: BICRAD 10:55 | PROVIDERS: ATTEND Family Medicine | DX: J44.1 Chronic obstructive pulmonary disease with (acute) exacerbation (principal) | CPT/HCPCS: 71046 ==

== ENCOUNTER 2023-02-27 14:09 | Outpatient (CLI) | payer MEDICARE | END 2023-02-27 14:10 | disposition home or self-care (01) | LOC: BICRAD 14:09 | PROVIDERS: ATTEND Physician Assistant | DX: R07.89 Other chest pain (principal); M54.6 Pain in thoracic spine; M47.814 Spondylosis without myelopathy or radiculopathy, thoracic region | CPT/HCPCS: 71111; 72072 ==

== ENCOUNTER 2023-08-15 12:24 | Outpatient (CLI) | payer MEDICARE | END 2023-08-15 12:25 | disposition home or self-care (01) | LOC: BICCT 12:24 | PROVIDERS: ATTEND Internal Medicine Cardiovascular Disease | DX: I65.23 Occlusion and stenosis of bilateral carotid arteries (principal); M47.812 Spondylosis without myelopathy or radiculopathy, cervical region; J38.01 Paralysis of vocal cords and larynx, unilateral; Z98.1 Arthrodesis status; Z98.890 Other specified postprocedural states | CPT/HCPCS: 70498 ==

== ENCOUNTER 2023-08-24 05:58 | Inpatient (IN) | payer MEDICARE ==
[2023-08-23 10:45] VITALS: BMI 40.4
[2023-08-24 06:57] LABS: #Eosinphils 0.1 thou/uL (0.0-0.7); #Monocytes 0.5 thou/uL (0.11-0.59); #Neutrophils 3.4 thou/uL (1.40-6.50); %Basophils 0.5 % (0.0-1.0); %Eosinophils 1.5 % (0.0-10.0); %Lymphocytes 30.5 % (21.0-51.0); %Monocytes 8.6 % (0.0-10.0); %Neutrophils 58.1 % (42.0-75.0); Hematocrit 37.7 % (42.0-52.0); Hemoglobin 12.8 g/dL (14.0-18.0); Mean Corpuscular Hemoglobin 31.9 pg (27.0-31.0); Platelet Count 172 10x3/uL (130-400); RBC Distribution Width 13.4 % (11.5-14.5); Red Blood Cell (RBC) Count 4.01 mill/uL (4.70-6.10); White Blood Cell (WBC) Count 5.9 10x3/uL (4.8-10.8)
[2023-08-24 07:23] LABS: Anion Gap 12 mmol/L (10-20); BUN (Urea Nitrogen) 15 mg/dL (8.4-25.7); Calc. Creatinine Clearance 107 mL/min (70-130); Carbon Dioxide 23 mmol/L (23-31); Chloride 107 mmol/L (98-107); Estimated GFR 82; Glucose 110 mg/dL (83-110); Potassium 4.4 mmol/L (3.5-5.1); Sodium 138 mmol/L (136-145)
[2023-08-24] MEDS ORDERED: Lidocaine 1% MPF 2 ML VIAL ONE (07:46)
[2023-08-24] MEDS ORDERED: Protamine Sulfate 50 MG/5 ML VIAL ONE (08:14)
[2023-08-24] MEDS ORDERED: EPINEPHrine 1 MG/ML AMP ONE (08:14)
[2023-08-24] MEDS ORDERED: Heparin 5,000 UNITS/ML VIAL ONE (08:14)
[2023-08-24] MEDS ORDERED: Bupivacaine PF 0.5% 30 ML VIAL ONE (08:14)
[2023-08-24] MEDS ORDERED: Dexamethasone 4 mg/ml Vial ONE (08:14)
[2023-08-24] MEDS ORDERED: CEFAZOLIN 2 GM VIAL ONE (08:22)
[2023-08-24] MEDS ORDERED: Sodium Chloride 0.9% 100 ML ONE (08:22)
[2023-08-24] MEDS ORDERED: Fentanyl 250 MCG/5 ML VIAL ONE (08:27)
[2023-08-24] MEDS ORDERED: Ondansetron PF 4 MG/2 ML Vial ONE (08:36)
[2023-08-24] MEDS ORDERED: PROPOFOL 200 MG/20 ML VIAL ONE (08:36)
[2023-08-24] MEDS ORDERED: PHENYLEPHRINE-NS 100 MCG/ML 10 ML SYRINGE ONE (08:36)
[2023-08-24] MEDS ORDERED: Labetalol HCl 100 MG/20 ML VIAL ONE (08:36)
[2023-08-24] MEDS ORDERED: Dexamethasone 20 MG/5 ML VIAL ONE (08:36)
[2023-08-24] MEDS ORDERED: Rocuronium Bromide 10 MG/ML (10ML VIAL) ONE (08:36)
[2023-08-24] MEDS ORDERED: SUGAMMADEX SODIUM 200 MG/2 ML VIAL ONE (09:54)
[2023-08-24] MEDS ORDERED: hydrALAZINE 20 MG/ML VIAL SLOW IVP PRN (10:19)
[2023-08-24] MEDS ORDERED: Albuterol 200 PUFF (6.7GM INHALER) INH PRN (10:19)
[2023-08-24] MEDS ORDERED: fentaNYL 50 mcg/mL 1 mL Vial SLOW IVP PRN (10:19)
[2023-08-24] MEDS ORDERED: Acetaminophen 325 MG TAB PO PRN (10:19)
[2023-08-24] MEDS ORDERED: Nitroglycerin 50 MG/250 ML BOT 250 ML IVPB PRN (10:19)
[2023-08-24] MEDS ORDERED: Ondansetron PF 4 MG/2 ML Vial IVP PRN (10:19)
[2023-08-24] MEDS ORDERED: Phenylephrine 40 MG in Sodium Chloride 0.9% 250 ML 250 ML IVPB PRN (10:19)
[2023-08-24] MEDS ORDERED: Ipratropium/Albuterol 3 ML NEB NEB PRN (10:19)
[2023-08-24] MEDS ORDERED: traMADol HCl 50 MG TAB PO PRN (10:19)
[2023-08-24] MEDS ORDERED: Insulin Regular 300 UNITS/3 ML VIAL SC PRN (10:19)
[2023-08-24] MEDS ORDERED: Promethazine HCl 25 MG/ML VIAL IM PRN (10:19)
[2023-08-24] MEDS: traMADol HCl 50 MG TAB PO PRN ×2 (14:14→20:14)
[2023-08-24] MEDS: Furosemide 20 MG TAB PO SCH (14:14)
[2023-08-24] MEDS: CEFAZOLIN 2 GM in Sodium Chloride 0.9% 100 ML IVPB SCH ×2 (14:14→21:13)
[2023-08-24] MEDS: Ipratropium/Albuterol 3 ML NEB NEB SCH ×2 (14:44→18:34)
[2023-08-24] MEDS ORDERED: FLU VACC QS2023(65UP)/MF59C/PF 60 MCG/0.5 ML SYRINGE IM ONE (15:15)
[2023-08-24] MEDS: Sodium Chloride 0.9% 1,000 ML IV SCH ×3 (15:34→23:15)
[2023-08-24] MEDS ORDERED: Multivitamin W/ Minerals 1 TAB PO SCH (21:00)
[2023-08-24] MEDS ORDERED: Atorvastatin Calcium 40 MG TAB PO SCH (21:00)
[2023-08-24] MEDS ORDERED: Non-Formulary Item 1 EACH (Cholecalciferol (Vitamin D3) [Vitamin D3] 2,000 UNIT Capsule) PO SCH (21:00)
[2023-08-24] MEDS ORDERED: [UNRECOGNIZED DRUG - OTHER] PO SCH (21:00)
[2023-08-24] MEDS ORDERED: Fluticasone Propionate Nasal Spray 16 gm Bottle SCH (21:00)
[2023-08-24] MEDS ORDERED: MULTIVITAMIN WITH MINERALS PO SCH (21:00)
[2023-08-24] MEDS ORDERED: Cholecalciferol 1,000 UNITS (25 MCG) TAB PO SCH (21:00)
[2023-08-24] MEDS ORDERED: Fluticasone Propionate Nasal Spray 16 gm Bottle NASAL SCH (21:00)
[2023-08-25] MEDS: Ipratropium/Albuterol 3 ML NEB NEB SCH (02:21)
[2023-08-25 04:49] VITALS: TEMP 97.7
[2023-08-25] MEDS: CEFAZOLIN 2 GM in Sodium Chloride 0.9% 100 ML IVPB SCH (05:37)
[2023-08-25] MEDS ORDERED: Fluticasone Propionate Nasal Spray 16 gm Bottle NASAL SCH (07:45)
[2023-08-25] MEDS: Furosemide 20 MG TAB PO SCH (08:49)
[2023-08-25] MEDS ORDERED: Loratadine 10 MG TAB PO SCH (09:00)
[2023-08-25] MEDS ORDERED: Aspirin Chewable 81 MG TAB PO SCH (09:00)
[2023-08-25] MEDS ORDERED: Ferrous Sulfate 325 MG TAB PO SCH (09:00)
[2023-08-25] MEDS ORDERED: Non-Formulary Item 1 EACH (Levocetirizine Dihydrochloride [Xyzal] 5 MG Tablet) PO SCH (09:00)
[2023-08-25] MEDS ORDERED: Levothyroxine 150 MCG TAB PO SCH (09:00)
== END 2023-08-25 12:18 | disposition home or self-care (01) | DRG 38 ==
LOC: SURG A 05:58 → CCU 13:28
PROVIDERS: ADMIT Thoracic Surgery (Cardiothoracic Vascular Surgery); ATTEND Thoracic Surgery (Cardiothoracic Vascular Surgery)
PROC: 03CK0ZZ Extirpation of Matter from Right Internal Carotid Artery, Open Approach (ICD-10-PCS; principal; 2023-08-24)
PROC: 03UK0KZ Supplement Right Internal Carotid Artery with Nonautologous Tissue Substitute, Open Approach (ICD-10-PCS; 2023-08-24)
PROC: 5A09357 Assistance with Respiratory Ventilation, Less than 24 Consecutive Hours, Continuous Positive Airway Pressure (ICD-10-PCS; 2023-08-24)
PROC: 3E033XZ Introduction of Vasopressor into Peripheral Vein, Percutaneous Approach (ICD-10-PCS; 2023-08-24)
DX: I65.21 Occlusion and stenosis of right carotid artery (principal); Z68.41 Body mass index [BMI] 40.0-44.9, adult; Z79.82 Long term (current) use of aspirin; Z79.890 Hormone replacement therapy; Z79.899 Other long term (current) drug therapy; Z79.51 Long term (current) use of inhaled steroids; J44.9 Chronic obstructive pulmonary disease, unspecified; E66.9 Obesity, unspecified; E78.00 Pure hypercholesterolemia, unspecified; I10 Essential (primary) hypertension; E03.9 Hypothyroidism, unspecified; Z95.1 Presence of aortocoronary bypass graft; Z87.891 Personal history of nicotine dependence; Z90.49 Acquired absence of other specified parts of digestive tract; Z98.890 Other specified postprocedural states; Z83.3 Family history of diabetes mellitus; Z82.49 Family history of ischemic heart disease and other diseases of the circulatory system; Z88.8 Allergy status to other drugs, medicaments and biological substances
CPT/HCPCS: 36416; 80048; 85025; 88305; 88341; 88342; 93005; 93010; 94640; C1768; J0171; J1100; J1642; J1644; J1815; J2405; J2704; J2720; J3010; J3490; J7050; J7620; S0020

== ENCOUNTER 2023-08-28 10:34 | Observation (INO) | payer MEDICARE ==
[~2023-08-28 10:34] MED LIST changes: -FLU VACC TS2019-20(65YR UP)/PF 180 MCG/0.5 ML SYRINGE IM ONE; +Iopamidol-370 76% 500 ML MDV (1 ML CHARGE) ONE
[2023-08-28 11:10] LABS: #Eosinphils 0.3 thou/uL (0.0-0.7); #Monocytes 0.6 thou/uL (0.11-0.59); #Neutrophils 5.5 thou/uL (1.40-6.50); %Basophils 0.3 % (0.0-1.0); %Eosinophils 4.3 % (0.0-10.0); %Lymphocytes 17.9 % (21.0-51.0); %Monocytes 7.4 % (0.0-10.0); %Neutrophils 69.3 % (42.0-75.0); Hematocrit 37.9 % (42.0-52.0); Hemoglobin 12.9 g/dL (14.0-18.0); Mean Corpuscular Hemoglobin 31.9 pg (27.0-31.0); Mean Corpuscular Volume 93.6 fl (78.0-98.0); Platelet Count 184 10x3/uL (130-400); RBC Distribution Width 13.3 % (11.5-14.5); Red Blood Cell (RBC) Count 4.05 mill/uL (4.70-6.10)
[2023-08-28 11:33] LABS: Prothrombin Time 14.1 sec (12.0-14.7)
[2023-08-28 11:34] LABS: PTT 25.1 sec (22.9-36.1)
[2023-08-28 11:35] LABS: ALT (SGPT) 17 U/L (8-55); AST (SGOT) 33 U/L (5-34); Albumin 4.2 g/dL (3.4-4.8); Alkaline Phosphatase 67 U/L (40-110); Anion Gap 15 mmol/L (10-20); BUN (Urea Nitrogen) 15 mg/dL (8.4-25.7); Bilirubin, Total 1.8 mg/dL (0.2-1.2); Calc. Creatinine Clearance 0 mL/min (70-130); Calcium 9.1 mg/dL (7.8-10.44); Carbon Dioxide 25 mmol/L (23-31); Chloride 105 mmol/L (98-107); Estimated GFR 87; Globulin 3.1 g/dL (2.4-3.5); Glucose 110 mg/dL (83-110); Potassium 4.5 mmol/L (3.5-5.1); Protein, Total 7.3 g/dL (5.8-8.1); Sodium 140 mmol/L (136-145)
[2023-08-28 11:39] LABS: Troponin I 0.017 ng/mL (< 0.028)
[2023-08-28 14:08] LABS: Hemoglobin A1c 5.3 % (4.0-6.0)
[2023-08-28 14:33] LABS: Troponin I Less than 0.010 ng/mL (< 0.028)
== END 2023-08-28 15:55 | disposition home or self-care (01) ==
LOC: ERS 10:34 → ERHOLD 12:50
PROVIDERS: ADMIT Internal Medicine; ATTEND Internal Medicine
DX: R41.82 Altered mental status, unspecified (principal); R47.1 Dysarthria and anarthria; I25.810 Atherosclerosis of coronary artery bypass graft(s) without angina pectoris; I12.9 Hypertensive chronic kidney disease with stage 1 through stage 4 chronic kidney disease, or unspecified chronic kidney disease; N18.2 Chronic kidney disease, stage 2 (mild); J44.9 Chronic obstructive pulmonary disease, unspecified; M19.90 Unspecified osteoarthritis, unspecified site; E03.9 Hypothyroidism, unspecified; Z96.21 Cochlear implant status; Z88.5 Allergy status to narcotic agent; Z88.2 Allergy status to sulfonamides; Z79.890 Hormone replacement therapy; Z79.899 Other long term (current) drug therapy; Z98.890 Other specified postprocedural states; Z87.891 Personal history of nicotine dependence; H91.93 Unspecified hearing loss, bilateral; D64.9 Anemia, unspecified; E66.9 Obesity, unspecified
CPT/HCPCS: 70450; 70496; 70498; 71045; 82962; 83036; 84484 ×2; 85610; 85730; 93005; 94760; 99285; G0378; 36415; 36416; 80053; 84443; 85025; Q9967

== ENCOUNTER 2024-01-01 15:10 | Outpatient (CLI) | payer MEDICARE ==
[2024-01-01 16:04] LABS: #Eosinphils 0.2 10x3/uL (0.0-0.5); #Monocytes 0.5 10x3/uL (0.0-1.1); #Neutrophils 4.8 10x3/uL (1.5-8.4); %Basophils 0.4 % (0.0-2.0); %Eosinophils 2.2 % (0.0-6.0); %Lymphocytes 23.3 % (18.0-47.0); %Monocytes 6.4 % (0.0-10.0); %Neutrophils 66.9 % (40.0-75.0); Hematocrit 38.3 % (38.8-50.0); Hemoglobin 13.3 g/dL (13.5-17.5); Mean Corpuscular HGB CONC 34.7 g/dL (32.0-36.0); Mean Corpuscular Hemoglobin 31.1 pg (27.0-33.0); Mean Corpuscular Volume 89.5 fl (81.2-95.1); Mean Platelet Volume 10.5 fl (7.4-10.4); Platelet Count 156 10x3/uL (150-450); Red Blood Cell (RBC) Count 4.28 10x6/uL (4.32-5.72); White Blood Cell (WBC) Count 7.2 10x3/uL (3.5-10.5)
[2024-01-01 16:16] LABS: Anion Gap 12 mmol/L (10-20); BUN (Urea Nitrogen) 24 mg/dL (8.4-25.7); Calc. Creatinine Clearance 0 mL/min (70-130); Calcium 8.7 mg/dL (7.8-10.44); Carbon Dioxide 25 mmol/L (23-31); Chloride 109 mmol/L (98-107); Estimated GFR 59; Glucose 122 mg/dL (83-110); Sodium 142 mmol/L (136-145)
== END 2024-01-01 15:11 | disposition home or self-care (01) ==
LOC: LABBT 15:10
PROVIDERS: ATTEND Orthopaedic Surgery
DX: Z01.812 Encounter for preprocedural laboratory examination (principal); M19.012 Primary osteoarthritis, left shoulder
CPT/HCPCS: 80048; 85025

== ENCOUNTER 2024-01-04 05:38 | Observation (INO) | payer MEDICARE ==
[2024-01-01 15:41] VITALS: BMI 39.5
[2024-01-04] MEDS ORDERED: Tranexamic Acid 1,000 MG/10 ML VIAL ONE (06:10)
[2024-01-04] MEDS ORDERED: Vancomycin (BATCH) 1.5 GM/300 ML BAG ONE (06:10)
[2024-01-04] MEDS ORDERED: Sodium Chloride 0.9% 100 ML ONE ×2 (06:10→07:06)
[2024-01-04] MEDS ORDERED: fentaNYL PF 100 MCG/2 ML SYRINGE ONE (06:20)
[2024-01-04] MEDS ORDERED: Midazolam HCl 2 mg/2 ml Vial ONE (06:20)
[2024-01-04] MEDS ORDERED: PROPOFOL 20 ML ONE (06:20)
[2024-01-04] MEDS ORDERED: CEFAZOLIN 2 GM VIAL ONE (07:06)
[2024-01-04] MEDS ORDERED: HYDROcodone/Acetaminophen 7.5/325 mg Tablet PO PRN ×2 (07:06)
[2024-01-04] MEDS ORDERED: Albuterol 2.5 MG (3 mL) NEB NEB PRN (07:18)
[2024-01-04] MEDS ORDERED: fentaNYL 50 mcg/mL 1 mL Vial SLOW IVP PRN (07:33)
[2024-01-04] MEDS ORDERED: Promethazine HCl 25 MG/ML VIAL IM PRN ×2 (07:45→08:47)
[2024-01-04] MEDS ORDERED: Ropivacaine 0.2% 550 ML 550 ML NERVE BLCK SCH (07:45)
[2024-01-04] MEDS ORDERED: Ondansetron PF 4 MG/2 ML Vial IVP PRN (07:45)
[2024-01-04] MEDS ORDERED: HYDROcodone/Acetaminophen 10/325 mg Tablet PO PRN ×2 (07:45)
[2024-01-04] MEDS ORDERED: traMADol HCl 50 MG TAB PO PRN (07:45)
[2024-01-04] MEDS ORDERED: Zolpidem Tartrate 5 MG TAB PO PRN (07:45)
[2024-01-04] MEDS ORDERED: ePHEDrine Sulfate 50 MG/10 ML VIAL ONE (07:47)
[2024-01-04] MEDS ORDERED: Ropivacaine 0.5% HCl/PF (150 MG/30 ML VIAL) ONE (07:58)
[2024-01-04] MEDS ORDERED: Ropivacaine 0.2% HCl/PF 20 ML ONE (07:58)
[2024-01-04] MEDS ORDERED: Lidocaine 1% (PF) 30 ML VIAL ONE (07:58)
[2024-01-04] MEDS ORDERED: SUGAMMADEX SODIUM 200 MG/2 ML VIAL ONE (08:39)
[2024-01-04] MEDS ORDERED: Rocuronium Bromide 10 MG/ML (10ML VIAL) ONE (08:41)
[2024-01-04] MEDS ORDERED: Dexamethasone 4 mg/ml Vial ONE (08:41)
[2024-01-04] MEDS ORDERED: Lidocaine 1% PF 5 ML VIAL ONE (08:41)
[2024-01-04] MEDS ORDERED: Ondansetron PF 4 MG/2 ML Vial ONE (08:41)
[2024-01-04] MEDS ORDERED: Ondansetron HCl/PF 4 MG/2 ML Vial IVP PRN (08:47)
[2024-01-04] MEDS ORDERED: Meperidine HCl/PF 25 MG/ML VIAL SLOW IVP PRN (08:47)
[2024-01-04] MEDS ORDERED: HYDROmorphone 2 MG/ML VIAL SLOW IVP PRN (08:47)
[2024-01-04] MEDS ORDERED: fentaNYL 50 mcg/mL 1 mL Vial ONE (09:40)
[2024-01-04] MEDS: Ferrous Sulfate 325 MG TAB PO SCH (12:09)
[2024-01-04] MEDS: Multivit, Therapeutic 1 TAB PO SCH (12:10)
[2024-01-04] MEDS: Meloxicam 15 MG TAB PO SCH (12:10)
[2024-01-04] MEDS: Loratadine 10 MG TAB PO SCH (12:10)
[2024-01-04] MEDS: Aspirin Chewable 81 MG TAB PO SCH (12:10)
[2024-01-04] MEDS: Furosemide 20 MG TAB PO SCH (12:10)
[2024-01-04] MEDS: Metoprolol Tartrate 25 MG TAB PO SCH (12:10)
[2024-01-04] MEDS: CEFAZOLIN 2 GM in Sodium Chloride 0.9% 100 ML IVPB SCH (14:32)
[2024-01-04] MEDS: Cholecalciferol 1,000 UNITS (25 MCG) TAB PO SCH (20:33)
[2024-01-04] MEDS: Atorvastatin Calcium 40 MG TAB PO SCH (20:34)
[2024-01-04] MEDS: Fluticasone Propionate Nasal Spray 16 gm Bottle NASAL SCH (20:34)
[2024-01-04] MEDS: traMADol HCl 50 MG TAB PO PRN (20:35)
[2024-01-05 09:13] VITALS: BP 122/66; TEMP 97.8
== END 2024-01-05 11:52 | disposition home or self-care (01) ==
LOC: SDC 05:38 → SURG A 07:06
PROVIDERS: ADMIT Orthopaedic Surgery; ATTEND Orthopaedic Surgery
PROC: 0RRK0JZ Replacement of Left Shoulder Joint with Synthetic Substitute, Open Approach (ICD-10-PCS; principal; 2024-01-04)
PROC: 0LS40ZZ Reposition Left Upper Arm Tendon, Open Approach (ICD-10-PCS; 2024-01-04)
DX: M19.012 Primary osteoarthritis, left shoulder (principal); M19.011 Primary osteoarthritis, right shoulder; M75.22 Bicipital tendinitis, left shoulder; M17.12 Unilateral primary osteoarthritis, left knee; I25.10 Atherosclerotic heart disease of native coronary artery without angina pectoris; Z95.1 Presence of aortocoronary bypass graft; J44.9 Chronic obstructive pulmonary disease, unspecified; E03.9 Hypothyroidism, unspecified; E66.9 Obesity, unspecified; Z86.73 Personal history of transient ischemic attack (TIA), and cerebral infarction without residual deficits; Z90.49 Acquired absence of other specified parts of digestive tract; Z88.5 Allergy status to narcotic agent; Z88.2 Allergy status to sulfonamides; Z87.891 Personal history of nicotine dependence
CPT/HCPCS: 23472; 24340; 97116; 97535; A4306; C1713 ×4; C1776 ×3; J3010; J3370; J1100; J2001; J2250; J2405; J2704; J2795; J3490

== ENCOUNTER 2024-04-17 15:47 | Outpatient (CLI) | payer MEDICARE | END 2024-04-17 15:48 | disposition home or self-care (01) | LOC: ULT 15:47 | PROVIDERS: ATTEND Family Medicine | DX: R60.0 Localized edema (principal); R79.1 Abnormal coagulation profile | CPT/HCPCS: 93970 ==

== ENCOUNTER 2024-12-06 13:57 | Outpatient (CLI) | payer MEDICARE ==
[2024-12-06 15:35] LABS: #Basophils Less than 0.03 10x3/uL (0.0-0.2); %Basophils 0.3 % (0.0-1.0); %Eosinophils 1.9 % (0.0-10.0); %Lymphocytes 30.4 % (21.0-51.0); %Monocytes 6.7 % (0.0-10.0); %Neutrophils 60.4 % (42.0-75.0); Hematocrit 38.2 % (42.0-52.0); Hemoglobin 13.3 g/dL (14.0-18.0); Mean Corpuscular HGB CONC 34.8 g/dL (32.0-36.0); Mean Corpuscular Hemoglobin 30.9 pg (27.0-31.0); Mean Corpuscular Volume 88.8 fL (78.0-98.0); Mean Platelet Volume 10.1 fL (7.4-10.4); Platelet Count 171 10x3/uL (130-400); RBC Distribution Width 13.8 % (11.5-14.5)
[2024-12-06 16:26] LABS: BUN (Urea Nitrogen) 14 mg/dL (8.4-25.7); Calc. Creatinine Clearance 0 mL/min (70-130); Calcium 8.8 mg/dL (7.8-10.44); Carbon Dioxide 26 mmol/L (23-31); Estimated GFR 86; Glucose 98 mg/dL (83-110)
[2024-12-06 17:18] LABS: Anion Gap 17 mmol/L (10-20); Chloride 106 mmol/L (98-107); Potassium 3.5 mmol/L (3.5-5.1); Sodium 143 mmol/L (136-145)
== END 2024-12-06 13:58 | disposition home or self-care (01) ==
LOC: LABBT 13:57
PROVIDERS: ATTEND Orthopaedic Surgery Hand Surgery
DX: Z01.812 Encounter for preprocedural laboratory examination (principal); G56.03 Carpal tunnel syndrome, bilateral upper limbs; M65.331 Trigger finger, right middle finger; M65.332 Trigger finger, left middle finger
CPT/HCPCS: 80048; 85025

== ENCOUNTER 2025-06-04 13:59 | Outpatient (CLI) | payer MEDICARE ==
[~2025-06-04 13:59] MED LIST changes: +Iopamidol 370 76% 100 ML VIAL ONE; -Iopamidol-370 76% 500 ML MDV (1 ML CHARGE) ONE
[2025-06-04 15:00] LABS: Estimated GFR - POC 75.0
== END 2025-06-04 14:00 | disposition home or self-care (01) ==
LOC: CT 13:59
PROVIDERS: ATTEND Physician Assistant Medical
DX: I77.810 Thoracic aortic ectasia (principal); J43.2 Centrilobular emphysema
CPT/HCPCS: 36415; 71275; 82565; Q9967